=== PATIENT | male | born 1970 | race Caucasian/White ===

== ENCOUNTER → 2022-06-04 08:59 | Outpatient (BNVA) | payer OTHER, SELFPAY | PROVIDERS: Referring Provider Nurse Practitioner; Visit Provider Nurse Practitioner | DX: G43.909 Migraine, unspecified, not intractable, without status migrainosus (principal); R53.83 Other fatigue | CPT/HCPCS: 84443; 99203 ==

== ENCOUNTER → 2022-07-22 12:04 | Outpatient (BNVA) | payer OTHER, SELFPAY | PROVIDERS: PCP Emergency Medicine Emergency Medical Services; Visit Provider Specialist | DX: G43.711 Chronic migraine without aura, intractable, with status migrainosus (principal); Q21.12 Patent foramen ovale | CPT/HCPCS: 64615; 95911; 99213; J0585 ==

== ENCOUNTER → 2022-10-12 15:38 | Outpatient (BNVA) | payer OTHER, SELFPAY | PROVIDERS: PCP Emergency Medicine Emergency Medical Services; Referring Provider Emergency Medicine Emergency Medical Services; Visit Provider Specialist | DX: G56.03 Carpal tunnel syndrome, bilateral upper limbs (principal) | CPT/HCPCS: 95910; 95912 ==

== ENCOUNTER → 2022-10-14 12:04 | Outpatient (BNVA) | payer OTHER, SELFPAY | PROVIDERS: PCP Emergency Medicine Emergency Medical Services; Visit Provider Specialist | DX: G43.711 Chronic migraine without aura, intractable, with status migrainosus (principal); G56.03 Carpal tunnel syndrome, bilateral upper limbs; Q21.12 Patent foramen ovale | CPT/HCPCS: 64615; 99214; J0585 ==

== ENCOUNTER 2022-11-04 05:47 | Outpatient (CLI) | payer OTHER, SELFPAY | END 2022-11-04 05:48 | disposition home or self-care (01) | LOC: SLEEP 11-05 05:48 | PROVIDERS: PCP Emergency Medicine Emergency Medical Services; Visit Provider Anesthesiology Pain Medicine | DX: G47.33 Obstructive sleep apnea (adult) (pediatric) (principal) | CPT/HCPCS: 95810 ==

== ENCOUNTER 2023-03-18 10:04 | Outpatient (CLI) | payer OTHER, SELFPAY ==
--- NOTE | 2023-03-18 10:18 | ECG_ITS ---
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 Interpretive Statements NAME OF STUDY: LEXISCAN SESTAMIBI STRESS TEST INDICATION: Abnormal ekg, PROCEDURE: At the baseline, the EKG revealed normal sinus rhythm with a normal ST Ts.. The baseline heart was 66 bpm with a blood pressue of 141/94 mm of Hg Lexiscan was infused over a period of 20 seconds. A total of 0.4 milligrams of Lexiscan was infused. The stress phase was continued for a total of 5 minutes. Heart rate at the end of the stress phase was 90 bpm with a blood pressure 126/80 mm of Hg. The EKG at the peak infusion revealed no significant changes. Sestamibi was injected 20 seconds after the Lexiscan infusion. Heart rate at the end of the recovery phase was 90 bpm with a blood pressure of 128/82 mm of Hg. CONCLUSION: 1. No significant EKG changes with the LexiScan infusion 2. No LexiScan induced chest pain or cardiac arrhythmia 3. Normal blood pressure and heart rate response 4. Sestamibi/sestamibi perfusion scan pending; see separate report. Electronically Signed On 03-27-2023 18:17:47 CDT by Greg Fitzgerald M.D. [email or web address]
--- NOTE | 2023-03-18 10:18 | NMCV_ITS ---
NM carol ann perf SPECT r/s* [id number] Marcos Moran Age: 52 Gender: M : 1970 Exam Date: 03/18/2023 10:18 Ordering Phys: Michael Shaver DO Technologist: SHIRA Han Exam Location: [facility] Indications: ABNORMAL EKG STRESS TEST Please see separate stress test report in [facility] for full findings IMAGE PROTOCOL Rest/Stress 1 Lexiscan Day Radiopharmaceutical Dose (mCi) Administration Site Administered by Rest: Tc-99m 10.5 IV Carlos Sutton, BED BUG EXTERMINATOR Sestamibi Stress:Tc-99m 32.5 IV Carlos Sutton, BED BUG EXTERMINATOR Sestamibi Rest: 18-Mar-2023 60 Discovery 630 Stress: 18-Mar-2023 30 Discovery 630 0.4mg Lexiscan. Images obtained in supine and prone position. SPECT RESULTS Technical Quality: Excellent Raw Data Analysis: Normal Image Corrections: No attenuation or motion correction applied Summed Stress Score: 0 Summed Rest Score: 0 Summed Difference Score: 0 PERFUSION FINDINGS Fairly uniform myocardial tracer uptake with no significant perfusion abnormality FUNCTIONAL RESULTS (calculated via Gated SPECT) Stress Image LV EF (%): 74 Stress EDV (mL):102 TID: 0.99 Stress ESV (mL):27 FUNCTIONAL FINDINGS: Segmental wall motion analysis revealing no gross wall motion abnormalities IMPRESSIONS 1. Myocardial perfusion imaging revealing fairly uniform myocardial tracer uptake with no significant perfusion abnormalities. 2. Normal LV ejection fraction of 74%. 3. LV wall motion analysis revealing no gross wall motion abnormalities. 4. Normal LV volume No similar previous studies are available for comparison Dr Greg Fitzgerald MD [facility] (Electronically Signed) Final Date: 18 March 2023 15:02 S
[2023-03-18 10:19] VITALS: BMI 27.6
[2023-03-18] MEDS: regadenoson 0.4 Mg/5 ml Syringe IVP (11:38)
[2023-03-18 11:53] VITALS: BP 128/82; PULSE 93
== END 2023-03-18 10:05 | disposition home or self-care (01) ==
LOC: CDL 10:07
PROVIDERS: PCP Emergency Medicine Emergency Medical Services; Visit Provider Emergency Medicine Emergency Medical Services
DX: R94.31 Abnormal electrocardiogram [ECG] [EKG] (principal)
CPT/HCPCS: 36415; 78452; 93017; 96375; A9500; J2785

== ENCOUNTER → 2023-04-05 15:07 | Outpatient (BNVA) | payer OTHER, SELFPAY | PROVIDERS: PCP Emergency Medicine Emergency Medical Services; Referring Provider Emergency Medicine Emergency Medical Services; Visit Provider Internal Medicine Pulmonary Disease | DX: R91.8 Other nonspecific abnormal finding of lung field (principal); R68.89 Other general symptoms and signs; Q21.12 Patent foramen ovale; R06.02 Shortness of breath; G47.33 Obstructive sleep apnea (adult) (pediatric) | CPT/HCPCS: 99204 ==

== ENCOUNTER → 2023-04-11 09:11 | Outpatient (BNVA) | payer OTHER, SELFPAY | PROVIDERS: PCP Emergency Medicine Emergency Medical Services; Visit Provider Internal Medicine Pulmonary Disease | DX: R68.89 Other general symptoms and signs (principal) | CPT/HCPCS: 80053; 85025; 85049; 85384; 85610; 85730 ==

== ENCOUNTER 2023-04-12 08:40 | Day surgery (SDC) | payer OTHER, SELFPAY ==
[2023-04-08 10:20] VITALS: BMI 28.3
[2023-04-12] VITALS (12 sets, daily range): BP systolic 94–119; BP diastolic 54–90; PULSE 67–96; RESP 16–21; TEMP 35.9–36.4; O2SAT 92–96
--- NOTE | 2023-04-12 | XR_ITS ---
WS: [id number] Exam: XR chest 1V portable [id number] Date/Time of Exam: 04/12/2023 2:17 PM Reason For Exam: post bronchoscopy biopsy r/o ptx No priors. The lungs are fully expanded. Areas of plaque atelectasis in the lower RIGHT lung zone and mid LEFT l ana zone. Heart size is normal. The mediastinum is normal in contour. No pleural effusions. Bony stru ctures are intact. Previously noted bilateral lower lobe chest lesions seen on CT of 04/12/2023 diffic ult to identify on the AP portable chest x-ray. IMPRESSION: 1. No pneumothorax. 2. Bilateral plaque atelectasis. 3. Known bilateral lower lobe masses difficult to identify on this study.
--- NOTE | 2023-04-12 08:47 | CT_ITS ---
WS: [id number] CT chest ION (PULM ONLY) 41909 HISTORY: for bronchoscopy biopsies TECHNIQUE: Axial imaging performed through the thorax. All CT scans at [facility] use at leas t one of these dose optimization techniques: automated exposure control; mA and/or kV adjustment per patient size (includes targeted exams where dose is matched to clinical indication); or iterative rec onstruction. CONTRAST: None DLP: 357.86 mGy COMPARISON: Chest CT 03/22/2023 and PET/CT 03/29/2023 Large solid mass medial RIGHT lower lobe abutting the hilum and RIGHT atrial border. Mass extends william ng the bronchovascular bundle. Additional bilateral lymphadenopathy in the mediastinum and hilum. The re is an additional nodule with central necrosis in the central LEFT upper lobe measuring 2.3 x 2.0 c m with adjacent postobstructive pneumonia or atelectasis. Mild groundglass attenuation periphery RIGH T lower lobe. IMPRESSION: 1. RIGHT lower lobe PET/CT positive mass. 2. LEFT upper lobe PET/CT positive nodule. 3. Mediastinal and hilar adenopathy.
--- NOTE | 2023-04-12 09:14 | W.PM.OPSUD ---
Surgery/Procedure H&P Update DATE OF PROCEDURE: April 12, 2023 DATE H&P PERFORMED: 04/05/23 H&P UPDATE INFORMATION: I have reviewed H&P completed within last 30 days, I have examined patient prior to procedure and No changes to prior documentation PREOP DIAGNOSIS: suspected lung malignancy PRIMARY INDICATION FOR PROCEDURE: Rule out malignancy PLANNED PROCEDURE: Operation Date: 04/12/23 09:55 Proposed Procedures p ION, EBUS, 76436, 43798, 65702, 64055, 79030, 37576, 80280, 60220, 30750, 04565, 63674, 91996, 75824, 98927,R91.8(Not Applicable) - Michael Sanders MD s Ebus(Not Applicable) - Michael Sanders MD
[2023-04-12] MEDS: sodium chloride 0.9% 1,000 ML 30 ML IV (09:23)
--- NOTE | 2023-04-12 09:23 | ANES.PREANE2 ---
Pre-Anesthetic Assessment Height/Weight: Height 1.55 m Weight 68.039 kg Temp Pulse Resp BP Pulse Ox O2 Del Method 97 F L 80 20 H 119/90 95 Room Air 04/12/23 08:47 04/12/23 08:47 04/12/23 08:47 04/12/23 08:47 04/12/23 08:47 04/12/23 08:47 Preop Diagnosis: suspected lung malignancy Operation Date: 04/12/23 09:55 Proposed Procedures p ION, EBUS, 43425, 18235, 52386, 19516, 29160, 06735, 04819, 27966, 31694, 44600, 18273, 35956, 62588, 14491,R91.8(Not Applicable) - Michael Sanders MD s Ebus(Not Applicable) - Michael Sanders MD Familial anesthetic complications: None Was Beta Jostin taken within 24 hours: N/A Was Clonidine taken within 24 hours: N/A Last intake: > 8hrs Social No alcohol and No tobacco Exam alert, oriented x 3, clear to auscultation bilaterally and regular rate & rhythm Airway Mallampati: Class I Dentition: full Pulmonary Sleep Apnea CV/HEM PFO - no symptoms or limitation, served in [employer] GI Gastroesophageal Reflux Disease Neuropsych Cerebrovascular Accident Anesthetic Plan ASA status: 3 Anesthesia: General Risk of > 500 ml blood loss (7ml/kg in children): No Medications/Allergies Home Medications Medication Instructions Recorded Confirmed Last Taken Type acetaminophen 500 mg capsule 500 mg PO Q6H PRN Pain 06/04/22 04/08/23 Unknown History albuterol sulfate 90 mcg/actuation 2 puff inhalation Q6H PRN 06/04/22 04/08/23 04/11/23 20:00 History aerosol inhaler Shortness Of Breath allopurinol 300 mg tablet 300 mg PO DAILY 06/04/22 04/08/23 04/12/23 07:00 History aspirin 81 mg tablet,delayed 81 mg PO DAILY 06/04/22 04/08/23 04/08/23 History release cholecalciferol (vitamin D3) 50 50 mcg PO DAILY 06/04/22 04/08/23 04/09/23 History mcg (2,000 unit) capsule fluticasone propionate 50 2 spray intranasal DAILY PRN 06/04/22 04/08/23 04/08/23 History mcg/actuation nasal allergies spray,suspension guaifenesin 400 mg tablet 400 mg PO QID 06/04/22 04/08/23 04/12/23 07:00 History multivitamin 1 tab PO DAILY 06/04/22 04/08/23 04/09/23 History naloxone 4 mg/actuation nasal spray 4 mg intranasal Q3M PRN emergency 06/04/22 04/08/23 Unknown History use olopatadine 0.1 % eye drops 1 drp ophthalmic (eye) BID 06/04/22 04/08/23 04/08/23 History pantoprazole 20 mg tablet,delayed 20 mg PO DAILY 06/04/22 04/08/23 04/12/23 07:00 History release topiramate 200 mg tablet 200 mg PO DAILY 06/04/22 04/08/23 04/12/23 07:00 History verapamil 240 mg 24 hr 240 mg PO DAILY 06/04/22 04/08/23 04/12/23 07:00 History capsule,extended release cetirizine 10 mg tablet 10 mg PO DAILY PRN allergies 04/05/23 04/08/23 04/12/23 07:00 History cyclobenzaprine 10 mg tablet 10 mg PO TID PRN muscle spasms 04/05/23 04/08/23 04/08/23 History montelukast 10 mg tablet 10 mg PO DAILY 04/05/23 04/08/23 04/12/23 07:00 History oxycodone 5 mg tablet 5 mg PO Q4H PRN Pain 04/05/23 04/08/23 04/12/23 07:00 History benzonatate 100 mg capsule 200 mg PO TID PRN Cough 04/08/23 04/08/23 04/12/23 07:00 History ibuprofen 800 mg tablet 800 mg PO TID PRN Pain 04/08/23 04/08/23 04/09/23 History Allergies Allergy/AdvReac Type Severity Reaction Status Date / Time acetaminophen [From Vicodin] Allergy Unknown Verified 04/08/23 10:04 chlorthalidone Allergy Unknown Verified 04/08/23 10:04 codeine Allergy Unknown Verified 04/08/23 10:04 diphenhydramine Allergy Unknown Verified 04/08/23 10:04 [From Benadryl] hydrocodone [From Vicodin] Allergy Unknown Verified 04/08/23 10:04 mometasone furoate Allergy Unknown Verified 04/08/23 10:04 [facility] Anesthesia Social History Smoking and tobacco status: never smoked (Chews Tobacco) Alcohol intake: never Substance/Drug Use: never Data Anesthesia Cardiac Studies: Sestamibi Stress Test (Cardiology) 03/18/23
--- NOTE | 2023-04-12 09:37 | SC_ITS ---
WS: [id number] C-ARM RADIOGRAPHS CHEST; 5 IMAGES HISTORY: ion/ebus COMPARISON: 04/12/2023 Intra procedure imaging is provided for Dr. Sanders during EBUS procedure. Scope is noted targeting the nodule in the lingula. Additional biopsy was also probably performed of the mass in the RIGHT lower lobe. IMPRESSION: Intraprocedural imaging provided for Dr. Sanders during biopsy of the LEFT upper and RIGHT lower lobe p reviously described suspicious pulmonary lesions.
[2023-04-12] MEDS: lidocaine 1% INJ 10 mL (per mL) XX (10:34)
[2023-04-12 12:06] LABS: Apprearance, Bronch Wash Cloudy (CLEAR); Bronch Source Left Upper Lobe; Color, Bronc Wash Red; PATH Referral Yes
[2023-04-12 12:25] LABS: Apprearance, Bronch Wash Cloudy (CLEAR); Bronch Source Right Lower Lobe; Color, Bronc Wash Red; PATH Referral Yes
[2023-04-12] MEDS: EPINEPHrine 1 mg/mL INJ XX (12:34)
--- NOTE | 2023-04-12 13:07 | P.OP_ITS ---
Operative Report Date of procedure: April 12, 2023 Pre-op diagnosis: Preop Diagnosis suspected lung malignancy Procedure done: 71871 Dx Bronchoscope w/Washings or airway inspection 67043 Bx Bronchoscope w/Brushings or protected brushings 08940 Dx Bronchoscope w/BAL 57293 Bronch with computer image guided Navigational Bronchoscopy 95259 Bronchoscopy w/Transbronchial lung biopsy(s), single lobe 93637 Bronchoscopy w/Transbronchial needle aspiration biopsy(s), tracheal, main stem, and/or lobar bronchus 20321 Bronchoscopy w/ therapeutic aspiration of the tracheobronchial tree (clearance of airway secretions, removal of mucus plugs) 97882 EBUS Sampling 1/2 nodes 52516 EBUS Diag or Interven Peripheral lesion (radial EBUS) Additional lobe lesions: 66753 Bx Bronchoscope w/Brushings or protected brushings 37116 w/Transbronchial lung biopsy(s), each additional lobe (list separately, in addition to code for primary procedure) 57473 w/Transbronchial needle aspiration biopsy(s), each additional lobe (list separately, in addition to code for primary procedure) Surgeon: Michael Sanders MD, [facility] Brief History: Mr. Marcos Moran is a 52-year-old male with past medical history eval and treat lung nodules per Dr. Shaver. 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 Significant exposure to dust at work place. In [place], he went to ER for his cough; and had CXR was abnormal; Later his PCP at [facility] here ordered CT chest 03/22/23 and it showed lung nodules as per patient(I do not have the report but I reviewed images from [facility]) followed by PET/CT 03/29/23 which showed 5 cm paramediastinal consolidation extending inferiorly from the right hilum with SUV 14.65, 3 cm somewhat spiculated anterolateral left perihilar soft tissue mass with SUV 6.77.? There are multiple additional small nodules bilaterally.? There were several hilar/mediastinal lymph nodes.? Highest activity seen in subcarinal node.? There is also an FDG avid nodule relatable to right thyroid lobe with SUV 6.73.? All these concerning for metastatic disease. Tells me that he unintentionally lost 15-20 lbs in one year. Tells me that he has previously refused colonoscopy and recent hemoccult cards were negative. Patient never smoked, chews tobacco 30 years. 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 ? Today scheduled for robotic navigational bronchoscopy guided biopsies of left upper anterior lateral nodule; as well as right lower lobe paramediastinal consolidation; followed by endobronchial ultrasound-guided biopsies of hilar/mediastinal lymph nodes. Procedure: 06554 Dx Bronchoscope w/Washings or airway inspection 49173 Bx Bronchoscope w/Brushings or protected brushings 77406 Dx Bronchoscope w/BAL 46775 Bronch with computer image guided Navigational Bronchoscopy 15743 Bronchoscopy w/Transbronchial lung biopsy(s), single lobe 33264 Bronchoscopy w/Transbronchial needle aspiration biopsy(s), tracheal, main stem, and/or lobar bronchus 74044 Bronchoscopy w/ therapeutic aspiration of the tracheobronchial tree (clearance of airway secretions, removal of mucus plugs) 30238 EBUS Sampling 1/2 nodes 51930 EBUS Diag or Interven Peripheral lesion (radial EBUS) Additional lobe lesions: 29315 Bx Bronchoscope w/Brushings or protected brushings 74888 w/Transbronchial lung biopsy(s), each additional lobe (list separately, in addition to code for primary procedure) 53385 w/Transbronchial needle aspiration biopsy(s), each additional lobe (list separately, in addition to code for primary procedure) Indication: Description of the procedure: The procedure was explained to the patient and the consent was obtained. The patient was brought to the OR. Anesthesia: The patient underwent endotracheal intubation for general anesthesia. Local anesthesia: The distal trachea-Irma, right and left mainstem bronchi were anesthetized with 1% lidocaine, 3 mL. Following induction of general anesthesia, the flexible bronchoscope was advance d through the ET tube. The lower trachea mucosa appeared normal, no endotracheal lesion was seen. The irma was sharp. The irma, the right and left mainstem bronchi are anesthetized with 1% lidocaine. In a systematic manner bilateral bronchial tree was then examined. The bronchoscope was then introduced into the right mainstem bronchus. The right upper lobe, right middle lobe and right lower lobe bronchi were examined up to the third subsegmental level and no abnormalities were identified.Mucosa appeared normal with no endobronchial lesion, active bleeding or mucous plug.There were significant clear as well as some mucus secretions which were suctioned right away.(01188). The bronchoscope was advanced into the left mainstem bronchus. The mucosa appeared normal with no endobronchial lesions. The left upper lobe, lingula and left lower lobe bronchi were examined up to the third subsegmental level and no abnormalities were identified. Mucosa appeared normal with no endobronchial lesion, active bleeding or mucous plug. There were some mucus secretions in left lower lobe-which were suctioned right away.(21058) After initial inspection as well as airway clearance with flexible bronchoscope(96984), ION robotic assisted navigational bronchoscope (55925) was introduced-and left upper lobe lesion was accessed. After confirming the location with radial EBUS (00896), under the fluoroscopy guidance -we were able to obtain biopsies using fine-needle, brushing, forceps.There was some evidence of grade 2 bleeding-cold saline was instilled. BAL was also taken from left upper lobe anterior segment. After making sure there is no active bleeding, bronchoscope was navigated to the posterior segment of right lower lobe lesion using [employer] robotic navigational software lesion. After confirming the location with radial EBUS (85646), under the fluoroscopy guidance -we were able to obtain biopsies using fine-needle, forceps, Cytobrush.There was some evidence of grade 2 bleeding-cold saline was instilled. Bronchoalveolar lavage was also taken from right lower lobe post erior segment. After making sure there is no active bleeding navigational bronchoscope was retracted and introduced Endobronchial ultrasound EBUS (46779). With the help of EBUS, identified right lower lobe perihilar mass corresponding to station 12 R and station 7. Fine-needle aspiration biopsies were taken from lower lobe perihilar mass (station 12R) and station 7 (97241). After taking the biopsies EBUS retracted-diagnostic bronchoscope was introduced to check for any evidence of active bleeding. There was some evidence of bleeding-controlled with instillation of cold saline and diluted epinephrine. After making sure there is no active bleeding bronchoscope was retracted and procedure terminated. Samples: A. Left upper lobe lesion 1. Total of 3 passes were made using needle aspiration(41560); we do not have onsite pathology and so all the material was placed in formalin for histopathology 2. Targeting the same area 4 passes were made using forceps (12151); we do not have onsite pathology and so all the material was placed in formalin for histopathology 3. Targeting the same area 1 pass were made using Cytobrush (33320); we do not have onsite pathology and so all the material was placed in formalin for histopathology 4. Bronchoscope was wedged at the entrance of the anterior segment of left upper lobe, 10 mL of saline was instilled and returned 6 mL of bronchoalveolar lavage (29099). The fluid was mixed with blood and specks of tissue. Samples for cell count, cytology, cultures B. Right lower lobe lesion (Additional lobe lesions) 1. Total of 3 passes were made using needle aspiration (99988 additional lobe); we do not have onsite pathology and so all the material was placed in formalin for histopathology 2. Targeting the same area 3 passes were made using forceps (43644 additional lobe); we do not have onsite pathology and so all the material was placed in formalin for histopathology 3. Targeting the same area 1 pass were made using Cytobrush (18098 additional lobe); we do not have onsite pathology and so all the material was placed in formalin for histopathology 3. Bronchoscope was wedged at the entrance of the posterior segment of right lower lobe, 10 mL of saline was instilled and returned 5 mL of bronchoalveolar lavage (24639). The fluid was mixed with blood and specks of tissue.Samples for cell count, cytology, cultures C. EBUS guided Fine-needle aspiration biopsies were taken from right lower lobe perihilar mass corresponding to station 12 R and station 7. (74287) 1. Total of 3 passes were made using needle aspiration(41621) from right lower lobe perihilar mass corresponding to station 12 R; all the material was placed in formalin and sent for histopathology 2. Total of 3 passes were made using needle aspiration(96219) from station 7: all the material was placed in formalin and sent for histopathology Complications: None.The patient was extubated and brought to the PACU in stable condition. Postprocedure chest x-ray: There is no evidence of pneumothorax Disposition: Patient can be discharged home in stable condition. Pt, and family are aware that I am going to call them to update final biopsy results once available. Related Problem List Diagnoses (1) Suspected lung cancer:
--- NOTE | 2023-04-12 13:31 | XR_ITS ---
WS: [id number] Exam: XR chest 1V portable [id number] Date/Time of Exam: 04/12/2023 1:33 PM Reason For Exam: post bronchoscopy biopsy r/o ptx The lungs are clear and fully expanded. Normal cardiomediastinal silhouette. No pleural effusions. Re gional bony structures appear normal. Previously noted suspicious bilateral lower lobe pulmonary mass es identified on chest CT performed 04/12/2023 are difficult to identify on the AP portable chest radi ograph. IMPRESSION: 1. No pneumothorax or acute infiltrate. 2. Bilateral lung masses difficult to visualize on this exam.
--- NOTE | 2023-04-12 13:41 | ANE.PACU2 ---
Inpatient post-anesthesia follow up: Airway intact: Yes Vital signs: Temperature 96.7 F Pulse Rate 71 Respiratory Rate 17 Blood Pressure 117/70 Pulse Oximetry 93 Oxygen Delivery Me thod Room Air Oxygen Flow Rate 2 Fraction of Inspir ed Oxygen Hydration adequate: Yes Nausea and vomiting: No Pain level: 1 Mental status: Baseline
[2023-04-12 13:58] LABS: Total Cells Counted Bronch 25
[2023-04-12 14:00] LABS: WBC Within 10% 11
[2023-04-12 14:01] LABS: Total Cells Counted Bronch 100; WBC Within 10% 9
[2023-04-12 14:02] LABS: Cyto Order Verification Order Verified
[2023-04-12 14:02] LABS: Cyto Order Verification Order Verified
== END 2023-04-12 14:30 | disposition home or self-care (01) ==
PROVIDERS: PCP Emergency Medicine Emergency Medical Services; Visit Provider Internal Medicine Pulmonary Disease
PROC: 0BJ08ZZ Inspection of Tracheobronchial Tree, Via Natural or Artificial Opening Endoscopic (ICD-10-PCS; CPT 31622; principal; 2023-04-12 09:35)
PROC: BB4BZZZ Ultrasonography of Pleura (ICD-10-PCS; 2023-04-12 09:35)
DX: R91.8 Other nonspecific abnormal finding of lung field (principal); K21.9 Gastro-esophageal reflux disease without esophagitis; Z86.73 Personal history of transient ischemic attack (TIA), and cerebral infarction without residual deficits; F17.220 Nicotine dependence, chewing tobacco, uncomplicated; R68.89 Other general symptoms and signs; Q21.12 Patent foramen ovale; R06.02 Shortness of breath; G47.33 Obstructive sleep apnea (adult) (pediatric)
CPT/HCPCS: 31623; 31624; 31627; 31628; 31629; 31632; 31633; 31645; 31652; 31654; 71045; 71250; 76000; 80503; 87015; 87070; 87116; 87205; 87206; 87801; 88112; 88305; 88312; 89050; J0171; J1100; J2405; J2704; J3010; J3490; J7030; P9045

== ENCOUNTER 2023-04-18 11:01 | Outpatient (CLI) | payer OTHER, SELFPAY ==
[2023-04-21 11:10] LABS: Quantiferon Mitogen >10.00 IU/mL; Quantiferon Nil 0.03 IU/mL; Quantiferon Plus TB1 0.04 IU/mL; Quantiferon TB Gold NEGATIVE (NEGATIVE)
[2023-04-21 17:55] LABS: Aspergillus AG,EIA,Serum NOT DETECTED; Aspergillus Galactomannan Inde <0.50
[2023-04-22 01:09] LABS: Histoplasma Galactomannan Ag <0.2 ng/mL
[2023-04-22 16:55] LABS: Histoplasma Antigen (Quant) NONE DETECTED; Histoplasma Antigen Interpreta NEGATIVE; Histoplasma Antigen Specimen URINE
[2023-04-22 17:40] LABS: Aspergillus Source EDTA WHOLE BLOOD; Aspergillus Supp NOT DETECTED; Aspergillus Terreus DNA NOT DETECTED
[2023-04-22 20:53] LABS: Fungitell 1-3-B Glucan Assay <31 pg/mL; Interpretation NEGATIVE
[2023-04-23 15:20] LABS: Blastomyces AB Immunodiffusion Negative (Negative); Blastomyces Dermatitidis AB <1:8 titer (<1:8)
[2023-04-24 16:40] LABS: Coccidioides IgG Antibody POSITIVE; Coccidioides IgM Antibody POSITIVE
[2023-04-28 18:34] LABS: Coccidioides AB CF Serum 1:16
== END 2023-04-18 11:02 | disposition home or self-care (01) ==
PROVIDERS: PCP Emergency Medicine Emergency Medical Services; Visit Provider Internal Medicine Pulmonary Disease
DX: B49 Unspecified mycosis (principal); J16.8 Pneumonia due to other specified infectious organisms
CPT/HCPCS: 36415; 86480; 86606; 86612; 86635; 87305; 87385; 87449; 87798

== ENCOUNTER → 2023-04-20 08:00 | Outpatient (BNVA) | payer OTHER, SELFPAY | PROVIDERS: PCP Emergency Medicine Emergency Medical Services; Visit Provider Specialist | DX: G43.711 Chronic migraine without aura, intractable, with status migrainosus (principal) | CPT/HCPCS: 64615; J0585 ==

== ENCOUNTER 2023-04-21 07:00 | Outpatient (CLI) | payer OTHER, SELFPAY | END 2023-04-21 07:01 | disposition home or self-care (01) | PROVIDERS: PCP Emergency Medicine Emergency Medical Services; Visit Provider Internal Medicine Pulmonary Disease | DX: R91.8 Other nonspecific abnormal finding of lung field (principal); R06.00 Dyspnea, unspecified | CPT/HCPCS: 94010; 94618; 94726; 94729 ==

== ENCOUNTER → 2023-05-09 09:05 | Outpatient (BNVA) | payer OTHER, SELFPAY | PROVIDERS: PCP Emergency Medicine Emergency Medical Services; Visit Provider Internal Medicine Pulmonary Disease | DX: J16.8 Pneumonia due to other specified infectious organisms (principal); B49 Unspecified mycosis; B38.9 Coccidioidomycosis, unspecified; J98.4 Other disorders of lung; Q21.12 Patent foramen ovale; G47.33 Obstructive sleep apnea (adult) (pediatric); J98.11 Atelectasis; F17.220 Nicotine dependence, chewing tobacco, uncomplicated | CPT/HCPCS: 71046; 99214 ==

== ENCOUNTER → 2023-05-12 12:39 | Outpatient (BNVA) | payer OTHER, SELFPAY | PROVIDERS: PCP Emergency Medicine Emergency Medical Services; Visit Provider Internal Medicine Cardiovascular Disease | DX: B49 Unspecified mycosis (principal); J16.8 Pneumonia due to other specified infectious organisms; Z79.899 Other long term (current) drug therapy; B38.9 Coccidioidomycosis, unspecified | CPT/HCPCS: 93005; 99205 ==

== ENCOUNTER 2023-05-18 09:19 | Outpatient (CLI) | payer OTHER, SELFPAY ==
[2023-05-18 09:36] LABS: Basophils % 0.5 %; Eosinophils # 0.1 10^3/uL (0.0-0.8); Eosinophils % 3.3 %; Hematocrit 44.2 % (37-53); Lymphocytes % 23.3 %; Mean Corpuscular HGB Conc 33.7 g/dL (30-55); Mean Corpuscular Volume 94.8 fl (82-101); Mean Platelet Volume 8.8 fL (7.4-10.4); Monocytes # 0.5 10^3/uL (0.2-0.9); Monocytes % 11.4 %; Neutrophils # 2.63 10^3/uL (1.8-7.7); Nucleated Red Blood Cells % 0 %; Platelet Count 206 10^3/cmm (157-399); Red Blood Count 4.66 10^6/uL (3.85-5.65); Red Cell Distribution Width 13.3 % (12.1-15.1)
[2023-05-20 16:10] LABS: Alternaria Alternata (M6) Ige <0.10 kU/L; Alternaria Class 0; Bermuda Class 0; Bermuda Grass (G2) Ige <0.10 kU/L; Cat Dander (E1) Ige <0.10 kU/L; Cat Dander Class 0; Common Ragweed (Short) (W1) Ig <0.10 kU/L; D. Farinae Class 0; Dermatophagoides Class 0; Dermatophagoides Farinae (D2) <0.10 kU/L; Dermatophagoides Pteronyssinus <0.10 kU/L; Dog Dander (E5) Ige <0.10 kU/L; Dog Dander Class 0; Elm (T8) Ige <0.10 kU/L; Elm Class 0; English Plantain (W9) Ige <0.10 kU/L; English Plantain Class 0; House Dust (Greer) (H1) Ige <0.10 kU/L; House Dust (Hollister- Stier) <0.10 kU/L; House Dust Class 0; Immunoglobulin E 25 kU/L (<OR=114); Johnson Grass (G10) Ige <0.10 kU/L; Johnson Grass Cl 0; June Grass Class 0; June Grass(Kentucky Blue) (G8) <0.10 kU/L; Lamb'S Quarters (Goose Foot) <0.10 kU/L; Lamb'S Quarters Class 0; Maple (Box Elder) (T1) Ige <0.10 kU/L; Maple Class 0; Meadow Fescue (G4) Ige <0.10 kU/L; Meadow Fescue Class 0; Mucor Racemosus Class 0; Oak (T7) Ige <0.10 kU/L; Oak Class 0; Orchard Grass (Cocksfoot) (G3) <0.10 kU/L; Penicillium Class 0; Penicillium Notatum (M1) Ige <0.10 kU/L; Perennial Rye Grass (G5) Ige <0.10 kU/L; Perennial Rye Grass Class 0; Ragweeed Class 0; Rough Marsh Elder (W16) Ige <0.10 kU/L; Rough Marsh Elder Class 0; Sweet Vernal Class 0; Sweet Vernal Grass (G1) Ige <0.10 kU/L; Timothy Grass (G6) Ige <0.10 kU/L; Timothy Grass Class 0
== END 2023-05-18 09:20 | disposition home or self-care (01) ==
LOC: LAB 09:23
PROVIDERS: PCP Emergency Medicine Emergency Medical Services; Visit Provider Internal Medicine Pulmonary Disease
DX: R06.02 Shortness of breath (principal)
CPT/HCPCS: 36415; 82785; 85025; 86003

== ENCOUNTER 2023-06-13 10:50 | Outpatient (CLI) | payer OTHER, SELFPAY ==
--- NOTE | 2023-06-13 11:00 | CT_ITS ---
WS: [id number] CT chest wo con 18702 HISTORY: follow Up, as per history of fungal infection per patient. TECHNIQUE: Axial imaging performed through the thorax. Coronal and sagittal reformats are submitted. All CT scans at [facility] use at least one of these dose optimization techniques: automated exposure control; mA and/or kV adjustment per patient size (includes targeted exams where dose is mat ched to clinical indication); or iterative reconstruction. CONTRAST: None DLP: 324.41 mGy.cm COMPARISON: 04/12/2023 and 03/22/2023 Lungs and central airway: Previously described PET/CT positive cavitary mass in the LEFT upper lobe i s reidentified with significant improvement. Nodular component measures 1.1 x 1.0 cm. Cavitation has resolved. Minimal adjacent groundglass attenuation and a single satellite nodule. Significant improve ment in size and overall. Nodular inflammatory change. Previously described mass centered at the RIGH T hilum and extending into the azygos esophageal recess is reidentified. There is been a moderate imp rovement in size and surrounding inflammatory changes. The residual mass measures 4.8 x 2.1 cm. There is less adjacent para inflammatory stranding. Pleura: Normal. No pleural effusion. Heart and pericardium: Normal size heart with no pericardial effusion. Mediastinum and iwona: Mildly prominent mediastinal and hilar lymph nodes similar size to the PET/CT w ith the largest in the inferior LEFT paratracheal region measuring 1.4 cm. Vessels: Normal size aortic and pulmonary artery. No coronary artery calcifications. Chest wall and lower neck: No soft tissue masses. Upper abdomen: Negative. Osseous structures: Straightening of the normal thoracic kyphosis. Slight reversal at the thoracolumb ar junction. IMPRESSION: 1. Significant improvement of the RIGHT lower lobe and LEFT upper lobe PET/CT positive consolidations . 2. Residual LEFT upper lobe nodule 1.1 x 1.0 cm. 3. Residual medial RIGHT lower lobe mass 4.8 x 2.1 cm.
== END 2023-06-13 10:51 | disposition home or self-care (01) ==
LOC: RAD 10:50
PROVIDERS: PCP Emergency Medicine Emergency Medical Services; Visit Provider Internal Medicine Pulmonary Disease
DX: J16.8 Pneumonia due to other specified infectious organisms (principal); B49 Unspecified mycosis; R91.1 Solitary pulmonary nodule; R91.8 Other nonspecific abnormal finding of lung field
CPT/HCPCS: 71250

== ENCOUNTER → 2023-06-23 13:00 | Outpatient (BNVA) | payer OTHER, SELFPAY | PROVIDERS: PCP Emergency Medicine Emergency Medical Services; Visit Provider Student in an Organized Health Care Education/Training Program | DX: B38.9 Coccidioidomycosis, unspecified (principal) | CPT/HCPCS: 36415; 80053; 85025; 87806; 99214 ==

== ENCOUNTER → 2023-07-12 12:30 | Outpatient (BNVA) | payer OTHER, SELFPAY | PROVIDERS: PCP Emergency Medicine Emergency Medical Services; Visit Provider Internal Medicine Pulmonary Disease | DX: B38.9 Coccidioidomycosis, unspecified (principal); Q21.12 Patent foramen ovale; G47.33 Obstructive sleep apnea (adult) (pediatric); J16.8 Pneumonia due to other specified infectious organisms; B49 Unspecified mycosis | CPT/HCPCS: 99214 ==

== ENCOUNTER → 2023-07-21 07:55 | Outpatient (BNVA) | payer OTHER, SELFPAY | PROVIDERS: PCP Emergency Medicine Emergency Medical Services; Visit Provider Specialist | DX: G43.711 Chronic migraine without aura, intractable, with status migrainosus (principal) | CPT/HCPCS: 64615; 64643; J0585 ==

== ENCOUNTER → 2023-07-25 09:02 | Outpatient (BNVA) | payer OTHER, SELFPAY | PROVIDERS: PCP Emergency Medicine Emergency Medical Services; Referring Provider Emergency Medicine Emergency Medical Services; Visit Provider Surgery | DX: Z12.11 Encounter for screening for malignant neoplasm of colon (principal) | CPT/HCPCS: 99203 ==

== ENCOUNTER 2023-08-04 08:23 | Day surgery (SDC) | payer OTHER, SELFPAY ==
--- NOTE | 2023-08-04 08:36 | W.PM.OPSUD ---
Surgery/Procedure H&P Update DATE OF PROCEDURE: August 04, 2023 DATE H&P PERFORMED: 07/25/23 H&P UPDATE INFORMATION: I have reviewed H&P completed within last 30 days, I have examined patient prior to procedure, No changes to prior documentation and H&P is in [facility] EMR on date indicated PLANNED PROCEDURE: Operation Date: 08/04/23 09:35 Proposed Procedures p 50546 colon G0121 screen colon A risk Z12.11(Not Applicable) - Viet Cho MD
[2023-08-04 08:39] VITALS: BP 129/86; PULSE 80; RESP 18; TEMP 36.4; O2SAT 99; BMI 27.6
[2023-08-04] MEDS: sodium chloride 0.9% 1,000 ML 30 ML IV (08:55)
--- NOTE | 2023-08-04 08:55 | P.ANESASSM_ITS ---
Pre-Anesthetic Assessment Height/Weight: Height 1.55 m Weight 66.224 kg Temp Pulse Resp BP Pulse Ox O2 Del Method 97.5 F L 80 18 129/86 99 Room Air 08/04/23 08:39 08/04/23 08:39 08/04/23 08:39 08/04/23 08:39 08/04/23 08:39 08/04/23 08:39 Preop Diagnosis: screening Operation Date: 08/04/23 09:35 Proposed Procedures p 86133 colon G0121 screen colon A risk Z12.11(Not Applicable) - Viet Cho MD Last intake: Intake Last Liquid Date 08/03/23 Last Liquid Time 21:00 Last Solid Date 08/02/23 Last Solid Time 19:00 Social Alcohol and Tobacco Exam alert, oriented x 3, clear to auscultation bilaterally and regular rate & rhythm Airway Submandibular: within normal limits Cervical ROM: within normal limits Mallampati: Class I History/ROS No significant history except as noted and No significant complaints Pulmonary Asthma, Chronic Obstructive Pulmonary Disease and Sleep Apnea (does not use CPAP) [place] with lesions in lungs CV/HEM Hypertension pt states I have a large PFO None reported Hepatic None reported GI Gastroesophageal Reflux Disease Metabolic Hyperlipidemia [facility] [place] Osteoarthritis/DJD Neuropsych Cerebrovascular Accident (2019) Anesthetic Plan ASA status: 3 Anesthesia: Anesthesia Evaluation and MAC Medications/Allergies Home Medications Medication Instructions Recorded Confirmed Last Taken Type acetaminophen 500 mg capsule 500 mg PO Q6H PRN Pain 06/04/22 08/04/23 Unknown History albuterol sulfate 90 mcg/actuation 2 puff inhalation Q6H PRN 06/04/22 08/04/23 2 Weeks Ago History aerosol inhaler Shortness Of Breath ~07/21/23 allopurinol 300 mg tablet 300 mg PO DAILY 06/04/22 08/04/23 08/03/23 History aspirin 81 mg tablet,delayed 81 mg PO DAILY 06/04/22 08/04/23 08/03/23 History release cholecalciferol (vitamin D3) 50 50 mcg PO DAILY 06/04/22 08/04/23 08/03/23 History mcg (2,000 unit) capsule fluticasone propionate 50 2 spray intranasal DAILY PRN 06/04/22 08/04/23 2 Months Ago History mcg/actuation nasal allergies ~06/04/23 spray,suspension guaifenesin 400 mg tablet 400 mg PO QID 06/04/22 08/04/23 08/03/23 History multivitamin 1 tab PO DAILY 06/04/22 08/04/23 08/03/23 History naloxone 4 mg/actuation nasal spray 4 mg intranasal Q3M PRN emergency 06/04/22 08/04/23 08/03/23 History use olopatadine 0.1 % eye drops 1 drp ophthalmic (eye) BID 06/04/22 08/04/23 08/03/23 History pantoprazole 20 mg tablet,delayed 20 mg PO DAILY 06/04/22 08/04/23 08/03/23 History release topiramate 200 mg tablet 200 mg PO DAILY 06/04/22 08/04/23 08/03/23 History cetirizine 10 mg tablet 10 mg PO DAILY PRN allergies 04/05/23 08/04/23 08/03/23 History cyclobenzaprine 10 mg tablet 10 mg PO TID PRN muscle spasms 04/05/23 08/04/23 2 Months Ago History ~06/04/23 montelukast 10 mg tablet 10 mg PO DAILY 04/05/23 08/04/23 08/03/23 History oxycodone 5 mg tablet 5 mg PO Q4H PRN Pain 04/05/23 08/04/23 08/03/23 History ibuprofen 800 mg tablet 800 mg PO TID PRN Pain 04/08/23 08/04/23 08/03/23 History colchicine 0.6 mg tablet 0.6 mg PO BID PRN gout 05/09/23 08/04/23 1 Year Ago History ~08/04/22 fluticasone 250 mcg-salmeterol 50 1 inh inhalation BID #60 ea 05/30/23 08/04/23 08/03/23 Rx mcg/dose blistr powdr for inhalation ([facility] In[facility]) lisinopril 10 mg tablet 10 mg PO DAILY 07/25/23 08/04/23 08/03/23 History fluconazole 200 mg tablet 200 mg PO DAILY 6 months #180 tabs 07/29/23 08/04/23 08/03/23 Rx Allergies Allergy/AdvReac Type Severity Reaction Status Date / Time chlorthalidone Allergy Unknown Verified 08/04/23 08:50 codeine Allergy Unknown Verified 08/04/23 08:50 diphenhydramine Allergy Unknown Verified 08/04/23 08:50 [From Benadryl] hydrocodone [From Vicodin] Allergy Unknown Verified 08/04/23 08:50 [facility] Anesthesia Social History (Updated 07/25/23 @ 09:15 by MOIZ Eason) Smoking and tobacco/nicotine status: current every day tobacco/nicotine user smokeless tobacco Smokeless tobacco user: chewing tobacco Alcohol intake: current Alcohol intake frequency: holidays/special occasions only Substance/Drug Use: never Data Anesthesia Cardiac Studies: Sestamibi Stress Test (Cardiology) 03/18
[2023-08-04 10:12] VITALS: BP 118/70; PULSE 81; RESP 16; TEMP 36.1; O2SAT 96
[2023-08-04 10:28] VITALS: BP 112/76; PULSE 61; RESP 18; O2SAT 94
--- NOTE | 2023-08-04 14:32 | ANE.PACU2 ---
Inpatient post-anesthesia follow up: Airway intact: Yes Vital signs: Temperature 97.0 F Pulse Rate 61 Respiratory Rate 18 Blood Pressure 112/76 Pulse Oximetry 94 Oxygen Delivery Me thod Room Air Oxygen Flow Rate Fraction of Inspir ed Oxygen Hydration adequate: Yes Nausea and vomiting: No Pain level: 2 Mental status: Baseline
== END 2023-08-04 10:45 | disposition home or self-care (01) ==
PROVIDERS: PCP Emergency Medicine Emergency Medical Services; Visit Provider Surgery
PROC: 0DJD8ZZ Inspection of Lower Intestinal Tract, Via Natural or Artificial Opening Endoscopic (ICD-10-PCS; CPT 45378; principal; 2023-08-04 09:35)
DX: Z12.11 Encounter for screening for malignant neoplasm of colon (principal); J44.9 Chronic obstructive pulmonary disease, unspecified; G47.30 Sleep apnea, unspecified; I10 Essential (primary) hypertension; K21.9 Gastro-esophageal reflux disease without esophagitis; E78.5 Hyperlipidemia, unspecified; M19.90 Unspecified osteoarthritis, unspecified site; Z86.73 Personal history of transient ischemic attack (TIA), and cerebral infarction without residual deficits; Z79.82 Long term (current) use of aspirin; F17.220 Nicotine dependence, chewing tobacco, uncomplicated
CPT/HCPCS: 45378; J2704; J7030

== ENCOUNTER 2023-10-04 10:46 | Outpatient (CLI) | payer OTHER, SELFPAY ==
--- NOTE | 2023-10-04 10:53 | MR_ITS ---
WS: [id number] MRI LUMBAR SPINE NONCONTRAST HISTORY: LOW BACK PAIN COMPARISON: None available. TECHNIQUE: Sagittal and axial multisequence imaging is submitted. Straightening and reversal of the normal cervical lordosis. Encroachment on the central cervical jensen l at C4-5, C5-6 and C6-7. There are multiple small disc protrusions and osteophytes throughout the th oracic spine. Slight increase in the lumbar lordosis. Disc spaces are narrowed in the lower thoracic spine through the lumbar spine. No marrow edema or fra cture. Conus terminates normally at L1-2 disc level. Mild thoracic stenosis at T10-11 and T9-10 due to disc and osteophyte disease. L1-L2: Mild annular disc bulging with no stenosis. L2-L3: Mild annular disc bulging and osteophytic ridging. Facet and ligamentum flavum hypertrophy. No high-grade stenosis. L3-L4: Moderate annular disc bulging with moderate ligamentum flavum and facet arthritis. Mild disc e ncroachment upon the subarticular recesses and the traversing L4 nerve roots. Mild central, bilateral subarticular recess and foraminal stenosis. L4-L5: Moderate annular disc bulging encroaching upon the ventral thecal sac and subarticular recesse s. Moderate ligamentum flavum and facet arthritis. Mild central, bilateral subarticular recess and mi ld to moderate foraminal stenosis. L5-S1: Diffuse annular disc bulging with marked bilateral facet joint arthritis. Significant disc enc roachment upon the ventral thecal sac and the subarticular recesses. Disc contacts and slightly displ aces the S1 nerve roots. Moderate central, bilateral subarticular recess and foraminal stenosis. Paravertebral soft tissues are normal. IMPRESSION: 1. Multilevel mild to moderate stenosis throughout the lower lumbar spine. 2. No focal collection or epidural collection. 3. L5-S1: Moderate central, bilateral subarticular recess and foraminal stenosis due to disc and fac et joint arthritis. 4. L4-5: Mild central, bilateral subarticular recess with mild to moderate foraminal stenosis. 5. L3-4: Mild central, bilateral subarticular recess and foraminal stenosis. 6. Mild stenosis thoracic spine at T9-10 and T10-11.
== END 2023-10-04 10:47 | disposition home or self-care (01) ==
LOC: RAD 10:47
PROVIDERS: PCP Emergency Medicine Emergency Medical Services; Visit Provider Emergency Medicine Emergency Medical Services
DX: M48.07 Spinal stenosis, lumbosacral region (principal); M47.817 Spondylosis without myelopathy or radiculopathy, lumbosacral region; M48.04 Spinal stenosis, thoracic region; M51.9 Unspecified thoracic, thoracolumbar and lumbosacral intervertebral disc disorder
CPT/HCPCS: 72148

== ENCOUNTER 2023-10-12 11:59 | Outpatient (CLI) | payer OTHER, SELFPAY ==
--- NOTE | 2023-10-12 12:08 | MR_ITS ---
WS: [id number] MRI CERVICAL SPINE NONCONTRAST TECHNIQUE: Sagittal T1, T2 and STIR imaging. Axial T2, gradient, and fiesta imaging. CLINICAL INFORMATION: NECK PAIN/FLIP TO CITC COMPARISON: None. FINDINGS: Straightening with slight reversal of the normal cervical lordosis. Moderate spondylitic changes. Sli ght anterolisthesis C3 on C4. C2-C3: Mild facet arthropathy. Moderate LEFT and no significant RIGHT foraminal narrowing. Spinal can al is patent. C3-C4: Disc osteophyte complex with endplate ridging. Mild central canal stenosis. Uncovertebral join t hypertrophy. Severe LEFT and moderate RIGHT bony foraminal narrowing. Mild facet arthropathy. C4-C5: Disc osteophyte complex with endplate ridging. Mild central canal stenosis with slight indenta tion of the cervical cord. Mild facet arthropathy with uncovertebral joint hypertrophy. Severe LEFT a nd moderate RIGHT bony foraminal narrowing. C5-C6: Disc osteophyte complex with endplate ridging. Slight indentation of the cervical cord with mo derate central canal stenosis. Severe bilateral bony foraminal narrowing. C6-C7: Disc osteophyte complex with endplate ridging. Slight indentation of the cervical cord. Mild t o moderate central canal stenosis. Severe LEFT and moderate to severe RIGHT bony foraminal narrowing. C7-T1: Moderate to severe LEFT and moderate RIGHT bony foraminal narrowing. Visualized brain stem structures: Normal. Prevertebral soft tissues: Normal. IMPRESSION: 1. Straightening with slight reversal normal cervical lordosis. Moderate spondylitic changes. 2. Mild to moderate central canal stenosis C3-C4 C4-C5 C5-C6 and C6-C7 with slight indentation on th e cervical cord. 3. Cord signal remains normal. 4. Multilevel moderate to severe bony foraminal narrowing worse at LEFT C3-C4, bilateral C4-5 worse on the LEFT, bilateral C5-C6, LEFT greater than RIGHT C6-C7, and LEFT C7-T1.
== END 2023-10-12 12:00 | disposition home or self-care (01) ==
LOC: RAD 12:00
PROVIDERS: PCP Emergency Medicine Emergency Medical Services; Visit Provider Emergency Medicine Emergency Medical Services
DX: M54.2 Cervicalgia (principal)
CPT/HCPCS: 72141

== ENCOUNTER → 2023-10-20 07:42 | Outpatient (BNVA) | payer OTHER, SELFPAY | PROVIDERS: PCP Emergency Medicine Emergency Medical Services; Visit Provider Specialist | DX: G43.711 Chronic migraine without aura, intractable, with status migrainosus (principal) | CPT/HCPCS: 64615; J0585 ==

== ENCOUNTER → 2023-11-11 08:42 | Outpatient (BNVA) | payer OTHER, SELFPAY | PROVIDERS: PCP Emergency Medicine Emergency Medical Services; Visit Provider Internal Medicine Pulmonary Disease | DX: B38.9 Coccidioidomycosis, unspecified (principal); Q21.12 Patent foramen ovale; R06.02 Shortness of breath; G47.33 Obstructive sleep apnea (adult) (pediatric); J16.8 Pneumonia due to other specified infectious organisms; B49 Unspecified mycosis; F17.220 Nicotine dependence, chewing tobacco, uncomplicated | CPT/HCPCS: 99214 ==

== ENCOUNTER 2023-11-30 06:32 | Outpatient (CLI) | payer OTHER, SELFPAY ==
--- NOTE | 2023-11-30 07:00 | CT_ITS ---
WS: [id number] CT chest wo con [id number] HISTORY: 6 month f/u TECHNIQUE: Axial imaging performed through the thorax. Coronal and sagittal reformats are submitted. All CT scans at [facility] use at least one of these dose optimization techniques: automated exposure control; mA and/or kV adjustment per patient size (includes targeted exams where dose is mat ched to clinical indication); or iterative reconstruction. CONTRAST: None DLP: 326.53 mGy.cm COMPARISON: 06/13/2023 Lungs and central airway: LEFT upper lobe mass continues to decrease in size. There is less solid com ponent with the cavitary portion centrally increased in size. Nodule now measures 1.3 x 1.1 cm. There is a small amount of continued adjacent groundglass attenuation and a few nodules. Larger mass in th e medial RIGHT lower lobe now measures 4.5 x 2.4 cm. Only slight decrease in size of this mass since the prior study. There is continued adjacent mild groundglass attenuation. This mass is only slightly decreased in size. No new mass or cavitary lesion. Pleura: Normal. No pleural effusion. Heart and pericardium: Normal size heart with no pericardial effusion. Mediastinum and iwona: Mediastinal and hilar lymph nodes continue to decrease in size. The largest lym ph node along the LEFT paratracheal region is decreased in size and is now normal with recurrent norm al fatty hilum. Vessels: Mild atherosclerosis aorta. No aneurysm. Normal size pulmonary artery. Chest wall and lower neck: No soft tissue masses. Upper abdomen: Normal. Osseous structures: Straightening of the normal thoracic kyphosis. Slight reversal near the thoracolu mbar junction. IMPRESSION: 1. Slow but continued improvement in the LEFT upper lobe and RIGHT lower lobe consolidations. 2. No new pulmonary mass or nodule or cavitary lesion. 3. Continued improvement in the mediastinal and hilar lymph nodes. No adenopathy.
== END 2023-11-30 06:33 | disposition home or self-care (01) ==
LOC: RAD 06:32
PROVIDERS: PCP Emergency Medicine Emergency Medical Services; Visit Provider Internal Medicine Pulmonary Disease
DX: R91.8 Other nonspecific abnormal finding of lung field (principal)
CPT/HCPCS: 71250

== ENCOUNTER → 2024-01-17 13:00 | Outpatient (BNVA) | payer OTHER, SELFPAY | PROVIDERS: PCP Emergency Medicine Emergency Medical Services; Visit Provider Student in an Organized Health Care Education/Training Program | DX: B38.9 Coccidioidomycosis, unspecified (principal); Z79.899 Other long term (current) drug therapy | CPT/HCPCS: 99204 ==

== ENCOUNTER 2024-01-18 14:39 | Outpatient (CLI) | payer OTHER, SELFPAY | END 2024-01-18 14:40 | disposition home or self-care (01) | LOC: LAB 14:40 | PROVIDERS: PCP Emergency Medicine Emergency Medical Services; Visit Provider Student in an Organized Health Care Education/Training Program | DX: B38.9 Coccidioidomycosis, unspecified (principal) | CPT/HCPCS: 86635 ==

== ENCOUNTER → 2024-01-26 07:52 | Outpatient (BNVA) | payer OTHER, SELFPAY | PROVIDERS: PCP Emergency Medicine Emergency Medical Services; Visit Provider Specialist | DX: G43.711 Chronic migraine without aura, intractable, with status migrainosus (principal); G56.03 Carpal tunnel syndrome, bilateral upper limbs | CPT/HCPCS: 64615; J0585 ==

== ENCOUNTER → 2024-03-20 09:19 | Outpatient (BNVA) | payer OTHER, SELFPAY | PROVIDERS: PCP Emergency Medicine Emergency Medical Services; Referring Provider Emergency Medicine Emergency Medical Services; Visit Provider Internal Medicine | DX: R63.1 Polydipsia (principal); R35.89 Other polyuria; R63.4 Abnormal weight loss; Z68.29 Body mass index [BMI] 29.0-29.9, adult | CPT/HCPCS: 99204 ==

== ENCOUNTER → 2024-03-28 15:15 | Outpatient (BNVA) | payer OTHER, SELFPAY | PROVIDERS: PCP Emergency Medicine Emergency Medical Services; Visit Provider Internal Medicine | DX: R63.1 Polydipsia (principal); R35.89 Other polyuria | CPT/HCPCS: 82436; 83935; 84133; 84300 ==

== ENCOUNTER 2024-04-02 10:54 | Outpatient (CLI) | payer OTHER, SELFPAY ==
[2024-04-02 12:10] LABS: Sodium, Urine Result 87 mmol/L; Urine Creatinine 50 mg/dL (39-259); Urine Potassium 24 Hour 41 mmol/24H (25-125)
[2024-04-02 12:13] LABS: Potassium, Urine Result 144 mmol/L; Total Volume 3500 mL; Total Volume Urine 3500 ml; Total Volume, Urine 3500 mL
== END 2024-04-02 10:55 | disposition home or self-care (01) ==
PROVIDERS: PCP Emergency Medicine Emergency Medical Services; Visit Provider Internal Medicine
DX: R63.1 Polydipsia (principal); R35.89 Other polyuria
CPT/HCPCS: 82570; 84133; 84300; 84540

== ENCOUNTER → 2024-04-26 07:54 | Outpatient (BNVA) | payer OTHER, SELFPAY | PROVIDERS: PCP Emergency Medicine Emergency Medical Services; Visit Provider Specialist | DX: G43.711 Chronic migraine without aura, intractable, with status migrainosus (principal) | CPT/HCPCS: 36415; 64615; 82533; 84443; J0585 ==

== ENCOUNTER 2024-05-08 12:48 | Oncology outpatient (recurring) (ONCR) | payer OTHER, SELFPAY ==
--- OUTSIDE RECORDS SUMMARY | 2024-05-07 09:46 | XMS_ITS ---
Author Name Unknown Organization [facility] Address [address] [place] [address] Care Team Providers Care Technician [employer] Name Role Phone [facility] Michael BROWNING Primary Care Provider Un available Abner Huffman Unavailable [phone] Allergies Allergen (clinical drug ingredient) Drug/Non Drug Allergy documented on EMR Reaction Allergy Type Onset Date Status diphenhydramine Benadryl Unknown Drug Allergy A ctive codeine Codeine Unknown Drug Allergy Active REASON FOR VISIT RIGHT HIP Medications Medication SIG (Take, Route, Frequency, Duration) Notes Start Date End Date Status Montelukast Sodium 10 MG 1 tablet Orally Once a day Active Cyclobenzaprine HCl 10 MG 1 tablet at be dtime as needed Orally Once a day Not-Taking Clindamycin HCl 300 MG 1 capsule Orally every 6 hrs Active Lisinopril 10 MG 1 tablet Orally Once a day Active guaiFENesin 400 MG 1 tablet as needed Orally every 4 hrs Active Aspirin 81 Active Allopurinol 300 MG 1 tablet Orally Once a day Active Cetirizine HCl 10 MG 1 tablet Orally Onc e a day Active Topiramate 200 MG 1 tablet Orally Once a day Not-Taking Diclofenac Unknown Fluconazole 200 MG 1 tablet Orally 1 at hs Not-Taking Albuterol Not-Taking Wixela Inhub Active Pantoprazole Sodium 20 MG 1 tablet Orall y Once a day Active Ibuprofen 800 MG 1 tablet with food o r milk as needed Orally every 8 hrs Not-Taking Multivitamin Active oxyCODONE-Acetaminophen 5-325 MG 1 tablet as needed Orally every 6 hrs Active Social History Tobacco Use: Social History Observation Description Date Details (start date - stop date) Former Smoker NA - NA Tobacco Control (Standard) Question Answer Notes Tobacco use: Former smoker How long has it been since you last smoked? Grea ter than 10 years Vital Signs Blood pressure systolic 148 mm Hg 04/23/20 24 Blood pressure diastolic 80 mm Hg 024 Heart Rate 75 /min 04/23/2024 Respiratory Rate 18 /min 04/23/2024 Height 66 in 04/23/2024 Weight 154.32 lbs 04/23/2024 BMI 24.91 kg/m2 04/23/2024 Oximetry 98 % 04/23/2024 Height-cm 167.64 cm 04/23/2024 Weight-kg 70 kg 04/23/2024 Encounters Encounter Location Date Provider Diagnosis [facility] [address] [place] [id number] 04/23/2024 Abner Huffman Postoperative state Z98.890 Assessments Encounter Date Diagnosis (ICD Code) Assessment Notes Treat ment Notes Treatment Clinical Notes 04/23/2024 Postoperative state (ICD-10 - Z98.890) Plan Of Treatment Next Appt Details Provider Name:Abner Huffman , 05/28/2024 10:00:00 AM, [address] [place], [address], Provider Name:Chris Rodrigues, 09/18/2024 01:00:00 PM, [address] [place], [address], Progress Notes * Marcos MORAN WDOB:1969 (53 yo M)Acc No.[id number]:04/23/2024 Patient:?Marcos MORAN W Provider:?Abner Huffman MD :1970???Age:53 Y???Sex:Male Fabian e:04/23/2024 Address:[address] [place] [address] [id number] Pcp:Michael Marlow, DO Check In:09:50 AM CSTCheck Sasha ut:10:51 AM [employer] Subjective: * Chief Complaints: * ???RIGHT HIP * HPI: ???Provider Note:? Patient was seen after repair of his right gluteus medius tear. He reports he is working with therapy but still has pain. * Medical History:? * Surgical History:?Right Knee 1996Right Femur 1991Right Femur 1992Left Shoulder 2007Low Back RFA 23-24TEE 20Gluteus Medius Repair 01/2024 * Hospitalization/Major Diagno stic Procedure:?Stroke 2020 * Family History:? Grandma -Cancer. * Social History:?Tobacco Use:?Tobacco Control (Standard)?Tobacco use:?Former smoker ?How long has it been since you last smoked??Greater than 10 years * Medications:?TakingAllopurin ol 300 MG Tablet 1 tablet Orally Once a day Aspirin 81 Cetirizine HCl 10 MG Tablet 1 tablet Orally Once a day Clindamycin HCl 300 MG Capsule 1 capsule Orally every 6 hrs guaiFENesin 400 MG Tablet 1 tablet as needed Orally every 4 hrs Lisinopril 10 MG Tablet 1 tablet Orally Once a day Montelukast Sodium 10 MG Tablet 1 tablet Orally Once a day Multivitamin oxyCODONE-Acetaminophen 5-325 MG Tablet 1 tablet as needed Orally every 6 hrs Pantoprazole Sodium 20 MG Tablet Delayed Release 1 tablet Orally Once a day Wixela Inhub Taking Allopurinol 300 MG Tablet 1 tablet Orally Once a day Taking Aspirin 81 Taking Cetirizine HCl 10 MG Tablet 1 tablet Orally Once a day Taking Clindamycin HCl 300 MG Capsule 1 capsule Orally every 6 hrs Taking guaiFENesin 400 MG Tablet 1 tablet as needed Orally every 4 hrs Taking Lisinopril 10 MG Tablet 1 tablet Orally Once a day Taking Montelukast Sodium 10 MG Tablet 1 tablet Orally Once a day Taking Multivitamin Taking oxyCODONE- Acetaminophen 5-325 MG Tablet 1 tablet as needed Orally every 6 hrs Taking Pantoprazole Sodium 20 MG Tablet Delayed Release 1 tablet Orally Once a day Taking Wixela Inhub Not-TakingAlbuterol Cyclobenzaprine HCl 10 MG Tablet 1 tablet at bedtime as needed Orally Once a day Fluconazole 200 MG Tablet 1 tablet Orally 1 at hs Ibuprofen 800 MG Tablet 1 tablet with food or milk as needed Orally every 8 hrs Topiramate 200 MG Tablet 1 tablet Orally Once a day Not-Taking Albuterol Not-Taking Cyclobenzaprine HCl 10 MG Tablet 1 tablet at bedtime as needed Orally Once a day Not-Taking Fluconazole 200 MG Tablet 1 tablet Orally 1 at hs Not-Taking Ibuprofen 800 MG Tablet 1 tablet with food or milk as needed Orally every 8 hrs Not-Taking Topiramate 200 MG Tablet 1 tablet Orally Once a day UnknownDiclofenac Medication List reviewed and reconciled with the patientUnknown Diclofenac Medication List reviewed and reconciled with the patient * Allergies:?CodeineBenadrylno [Allergies Verified] Objective: * Vitals:?Ht: 66 in, Wt:154.32 lbs, Wt-k kg, BMI:24.91Index, BP:148/80mm Hg, HR:75/min, RR:18/min, Oxygen sat %:98%, O2 Source: ra, Ht-cm: 167.64 cm. * Examination: ???General Examination: ???Marcos still has tenderness over his left greater trochanter. In the lateral position he can abduct his leg away from his body. ??? Assessment: * Assessment: 1.?Postoperative state - Z98 .890 (Primary)??? Marcos will continue work with therapy. This should improve. I will see him back in 4 weeks. Plan: * Treatment: * Procedure Codes:? * Billing Information: * Visit Code:? * Procedure Codes:? * Sign off status: Completed true * Provider:?Abner Huffman MD Date:?04/23 Generated for Tiara ferris/Leah/Eberitting on:?05/07/2024 09:45 AM CDT
--- OUTSIDE RECORDS SUMMARY | 2024-05-07 09:46 | XMS_ITS ---
Author Name Unknown Organization [facility] Address [address] [place] [place] [address] Care Team Providers Care Quality System Manager Name Role Phone [facility] Michael BROWNING Primary Care Provider Un available Abner Huffman Unavailable [phone] Chris Rodrigues Unavailable [phone] Allergies Allergen (clinical drug ingredient) Drug/Non Drug Allergy documented on EMR Reaction Allergy Type Onset Date Status diphenhydramine Benadryl Unknown Drug Allergy A ctive codeine Codeine Unknown Drug Allergy Active REASON FOR VISIT F/U back pain Medications Medication SIG (Take, Route, Frequency, Duration) Notes Start Date End Date Status Clindamycin HCl 300 MG 1 capsule Orally every 6 hrs Active Cyclobenzaprine HCl 10 MG 1 tablet at be dtime as needed Orally Once a day Active guaiFENesin 400 MG 1 tablet as needed Orally every 4 hrs Active Lisinopril 10 MG 1 tablet Orally Once a day Active Montelukast Sodium 10 MG 1 tablet Orally Once a day Active Topiramate 200 MG 1 tablet Orally Once a day Not-Taking Diclofenac Unknown Allopurinol 300 MG 1 tablet Orally Once a day Active Aspirin 81 Active Cetirizine HCl 10 MG 1 tablet Orally Onc e a day Active Ibuprofen 800 MG 1 tablet with food o r milk as needed Orally every 8 hrs Not-Taking Pantoprazole Sodium 20 MG 1 tablet Orall y Once a day Active Wixela Inhub Active Albuterol Not-Taking Fluconazole 200 MG 1 tablet Orally 1 at hs Not-Taking Multivitamin Active oxyCODONE-Acetaminophen 5-325 MG 1 tablet as needed Orally every 6 hrs Active Social History Tobacco Use: Social History Observation Description Date Details (start date - stop date) Former Smoker NA - NA Tobacco Control (Standard) Question Answer Notes Tobacco use: Former smoker How long has it been since you last smoked? Grea ter than 10 years Vital Signs Temperature 98.0 degrees Fahrenheit 03/27/20 24 Blood pressure systolic 128 mm Hg 03/27/20 24 Blood pressure diastolic 76 mm Hg 024 Heart Rate 92 /min 03/27/2024 Respiratory Rate 20 /min 03/27/2024 Height 66 in 03/27/2024 Weight 150 lbs 03/27/2024 BMI 24.21 kg/m2 03/27/2024 Oximetry 91 % 03/27/2024 Height-cm 167.64 cm 03/27/2024 Weight-kg 68.04 kg 03/27/2024 Encounters Encounter Location Date Provider Diagnosis Counts Include [facility] At [facility] [place] [address] [place] [phone] 03/27/2024 Chris Rodrigues Cervicalgia M54.2 ; Cervical radiculopathy M54.12 ; Spondylolisthesis at L5-S1 level M43.17 ; Lumbar radiculopathy M54.16 and Scoliosis M41.9 Assessments Encounter Date Diagnosis (ICD Code) Assessment Notes Treat ment Notes Treatment Clinical Notes 03/27/2024 Cervicalgia (ICD-10 - M54.2) 03/27/2024 Cervical radiculopat hy (ICD-10 - M54.12) 03/27/2024 Spondylolisthesis at L5-S1 level (ICD-10 - M43.17) 03/27/2024 Lumbar radiculopathy (ICD-10 - M54.16) 03/27/2024 Scoliosis (ICD-10 - M41.9) 03/27/2024 Other The patient continues to have neck and back pain. He has recently had right hip surgery and says he is going to need shoulder surgery after he is recovered from the hip procedure. He is being referred to physial therapy post-operatively according to the patient. I recommended the patient address the Ortho issues before deciding on a surgery for the neck or back. I will see him back for a follow-up in 6 months. We will re-evaluate at that time. The patient is in agreement. DIA reviewed I Alyssa Ford LPN am scribing for, and in the presence of Chris Rodrigues MD. I, Chris Rodrigues, personally performed the services described in this documentation, as scribed by Alyssa Ford LPN in my presence, and it is both accurate and complete. Plan Of Treatment Treatment Notes Assessment Notes Other The patient continues to have neck and back pain. He has recently had right hip surgery and says he is going to need shoulder surgery after he is recovered from the hip procedure. He is being referred to physial therapy post-operatively according to the patient. I recommended the patient address the Ortho issues before deciding on a surgery for the neck or back. I will see him back for a follow-up in 6 months. We will re-evaluate at that time. The patient is in agreement. ROS reviewed I Alyssa Ford LPN am scribing for, and in the presence of Chris Rodrigues MD. I, Chris Rodrigues, personally performed the services described in this documentation, as scribed by Alyssa Ford LPN in my presence, and it is both accurate and complete. Next Appt Details Follow Up: Pt will call, Polly son: Provider Name:Abner Huffman , 05/28/2024 10:00:00 AM, [address] [facility] [place], [phone], Provider Name:Chris Rodrigues, 09/18/2024 01:00:00 PM, [address] [place], [address], Progress Notes * Marcos MORAN WDOB:1969 (53 yo M)Acc No.[id number]:03/27/2024 Progress Notes Patient:?Marcos MORAN W Provider:?Chris Rodrigues MD :1970???Age:53 Y???Sex:Male Fabian e:03/27/2024 Address:[address] [place] [address] [address] [id number] Pcp:Michael Marlow, DO Check Out:01:24 PM 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 F/U back pain. * HPI: ???Provider Note:?03/27/24 Pleasant patient returns for a follow-up on neck and back pain. He underwent a gluteus medius tear repair surgery on 02/[address] Huffman. The patient says he has been told he needs bilateral shoulder replacements after his recovery from the hip surgery. 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 Today, the patient says his back pain is worse than the neck. No changes in his symptoms from previous visits. 01/17/24 The patient returns today for a follow-up on back pain, and we now have a [facility] authorization to treat the neck pain as well. The patient was referred to Dr. Griggs on his previous visit for evaluation of right hip pain and swelling. The patient says he did see Dr. Griggs and is being scheduled for an MRI of the right hip. He has a follow-up with Dr. Griggs on February 23. The patient says there have been no changes in his symptoms since he was seen 4 weeks ago. The patient also complains of neck pain with radiation down both arms with numbness. He has an MRI of the cervical spine that shows severe stenosis at C3-4, C4-5, C5-6 and C6-7, there is reversal of cervical lordosis. The patient says he has an appointment scheduled with a Machine Preservative Filler on May 14 [address] Pineda at pain management to discuss a spinal cord stimulator. * ROS:?General/Constitutional:?Denies?Chills.?Denies?Fatigue/Tiredness.?Denies?Fever.?Denies?Headache.?Respiratory:?Denies?Breathing problems.?Denies?Cough.?Denies?Shortness of breath.?Denies?Wheezing.?Cardiovascular:?Denies?Chest pain.?Denies?Cyanosis.?Denies?Dizziness.?Denies?Palpitations.?Denies?Swelling in hands/feet.?Gastrointestinal:?Denies?Abdominal pain.?Denies?Change in bowel habits.?Denies?Nausea.?Genitourinary:?Urinary Incontinence?denies.?Musculoskeletal:?Comments?See HPI for details.?Neurologic:?Comments?See HPI for details.? * Medical History:?Measles, Mu mps, Chicken Pox, Pneumonia, Arthritis, Migraine, Back Trouble, HBP, Asthma, Stroke. * Surgical History:?Right Knee 1995, Right Femur 1990, Right Femur 1991, Left Shoulder 2006, Low Back RFA 23-24, EMMY 20, Gluteus Medius Repair 01/2024. * Hospitalization/Major Diagno stic Procedure:?Stroke 2019. * Family History:? Grandma -Cancer. * Social History:?Tobacco Use:?Tobacco Control (Standard)?Tobacco use:?Former smoker,?How long has it been since you last smoked??Greater than 10 years.? * Medications:?Taking Allopuri nol 300 MG Tablet 1 tablet Orally Once a day , Taking Aspirin 81 , Taking Cetirizine HCl 10 MG Tablet 1 tablet Orally Once a day , Taking Clindamycin HCl 300 MG Capsule 1 capsule Orally every 6 hrs , Taking Cyclobenzaprine HCl 10 MG Tablet 1 tablet at bedtime as needed Orally Once a day , Taking guaiFENesin 400 MG Tablet 1 tablet as needed Orally every 4 hrs , Taking Lisinopril 10 MG Tablet 1 tablet Orally Once a day , Taking Montelukast Sodium 10 MG Tablet 1 tablet Orally Once a day , Taking Multivitamin , Taking oxyCODONE-Acetaminophen 5-325 MG Tablet 1 tablet as needed Orally every 6 hrs , Taking Pantoprazole Sodium 20 MG Tablet Delayed Release 1 tablet Orally Once a day , Taking Wixela Inhub , Not-Taking Albuterol , Not-Taking Fluconazole 200 MG Tablet 1 tablet Orally 1 at hs , Not-Taking Ibuprofen 800 MG Tablet 1 tablet with food or milk as needed Orally every 8 hrs , Not- Taking Topiramate 200 MG Tablet 1 tablet Orally Once a day , Unknown Diclofenac , Medication List reviewed and reconciled with the patient * Allergies:?Codeine, Benadryl . Objective: * Vitals:?Ht: 66 in, Wt:150lbs , Wt-k.04 kg, BMI:24.21Index, Temp:98.0F, BP:128/76mm Hg, HR:92/min, RR:20/min, Oxygen sat %:91%, Ht-cm: 167.64 cm. * Examination: ???General Examination: ?GENERAL APPEARANCE:?alert, well hydrated, in no distress.?EYES:?normal conjunctiva.?SKIN:?warm and dry.?HEART:?normal heart rate.?LUNGS:?normal respirations.?MUSCULOSKELETAL:?limited cervical and lumbar range of motion, patchy sensation changes in the bilateral upper extremities and the left lower extremity, mild Sims's reflex on the right, swelling to the lateral right hip.?EXTREMITIES:?moves all extremities well.?NEUROLOGIC:?alert and oriented, cerebellar function normal, cognitive exam grossly normal, antalgic gait.?PSYCH:?alert, oriented, cognitive function intact, cooperative with exam, good eye contact, mood/affect full range, speech clear.? Assessment: * Assessment: 1.?Cervicalgia - M54.2 (Prim jessica)???2.?Cervical radiculopathy - M54.12???3.?Spondylolisthesis at L5-S1 level - M43.17???4.?Lumbar radiculopathy - M54.16???5.?Scoliosis - M41.9??? Plan: * Treatment: * Procedure Codes:?3074F SYST BP LT 130 MM HG, 3078F DIAST BP < 80 MM HG * Follow Up:?Pt will call * Billing Information: * Visit Code:? 53625 Office Visit, Est Pt., Level 3. * Procedure Codes:? 3074F SYST BP LT 130 MM HG. 3078F DIAST BP < 80 MM HG. Care Plan Details* * Sign off status: Completed true * Provider:?Chris Rodrigues MD Date:?2023 Generated for Tiara ferris/Leah/eTransmitting on:?05/07/2024 09:45 AM CDT History and Physical Notes * Examination Category Sub-Category Detail Notes General Examination GENERAL APPEARANCE: alert, w ell hydrated, in no distress EYES: normal conjunctiva HEART: normal heart rate LUNGS: normal respirations NEUROLOGIC: alert and oriented, cerebellar function normal, cognitive exam grossly normal, antalgic gait SKIN: warm and dry EXTREMITIES: moves all extremitie s well MUSCULOSKELETAL: limited cervical and lumbar range of motion, patchy sensation changes in the bilateral upper extremities and the left lower extremity, mild Sims's reflex on the right, swelling to the lateral right hip PSYCH: alert, oriented, cog nitive function intact, cooperative with exam, good eye contact, mood/affect full range, speech clear
--- OUTSIDE RECORDS SUMMARY | 2024-05-07 09:46 | XMS_ITS ---
Author Name Unknown Organization [facility] Address [address] [place] [address] Care Team Providers Care Educational Director Name Role Phone [facility] Michael BROWNING Primary Care Provider Un available Abner Huffman Unavailable [phone] Allergies Allergen (clinical drug ingredient) Drug/Non Drug Allergy documented on EMR Reaction Allergy Type Onset Date Status diphenhydramine Benadryl Unknown Drug Allergy A ctive codeine Codeine Unknown Drug Allergy Active REASON FOR VISIT RT HIP Medications Medication SIG (Take, Route, Frequency, Duration) Notes Start Date End Date Status Ibuprofen 800 MG 1 tablet with food o r milk as needed Orally every 8 hrs Not-Taking Albuterol Not-Taking Fluconazole 200 MG 1 tablet Orally 1 at hs Not-Taking Topiramate 200 MG 1 tablet Orally Once a day Not-Taking Diclofenac Unknown Pantoprazole Sodium 20 MG 1 tablet Orall y Once a day Active Wixela Inhub Active Multivitamin Active oxyCODONE-Acetaminophen 5-325 MG 1 tablet as needed Orally every 6 hrs Active Montelukast Sodium 10 MG 1 tablet Orally Once a day Active Cetirizine HCl 10 MG 1 tablet Orally Onc e a day Active Cyclobenzaprine HCl 10 MG 1 tablet at be dtime as needed Orally Once a day Active Clindamycin HCl 300 MG 1 capsule Orally every 6 hrs Active Lisinopril 10 MG 1 tablet Orally Once a day Active guaiFENesin 400 MG 1 tablet as needed Orally every 4 hrs Active Aspirin 81 Active Allopurinol 300 MG 1 tablet Orally Once a day Active Social History Tobacco Use: Social History Observation Description Date Details (start date - stop date) Former Smoker NA - NA Tobacco Control (Standard) Question Answer Notes Tobacco use: Former smoker How long has it been since you last smoked? 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) Active confirmed Problem 1139649737701132 Nontraumatic complete tear of left rotator cuff (M75.122) Active confirmed Vital Signs Blood pressure systolic 148 mm Hg 03/26/20 24 Blood pressure diastolic 78 mm Hg 024 Heart Rate 72 /min 03/26/2024 Respiratory Rate 20 /min 03/26/2024 Height 66 in 03/26/2024 Weight 145.5 lbs 03/26/2024 BMI 23.48 kg/m2 03/26/2024 Oximetry 88 % 03/26/2024 Height-cm 167.64 cm 03/26/2024 Weight-kg 66 kg 03/26/2024 Encounters Encounter Location Date Provider Diagnosis [facility] [address] [place] [phone] 03/26/2024 Abner Huffman Nontraumatic complet e tear of right rotator cuff M75.121 and Nontraumatic complete tear of left rotator cuff M75.122 Assessments Encounter Date Diagnosis (ICD Code) Assessment Notes Treat ment Notes Treatment Clinical Notes 03/26/2024 Nontraumatic complete tear of right rotator cuff (ICD-10 - M75.121) 03/26/2024 Nontraumatic complete tear of left rotator cuff (ICD-10 - M75.122) Plan Of Treatment Next Appt Details Provider Name:Abner Huffman , 05/28/2024 10:00:00 AM, [address] [place], [address], Provider Name:Chris Rodrigues, 09/18/2024 01:00:00 PM, [address] [place], [address], Medications Administered Medication Instructions Date of Administration Dosage Notes BUPivacaine HCl 03/26/2024 10 mL Right autumn ulder joint Lidocaine 03/26/2024 2 mL Right Shoulder Joint DEPO-Medrol 03/26/2024 40 mg Right Shoulde r Joint DEPO-Medrol 03/26/2024 40 mg Left Shoudler Joint Lidocaine 03/26/2024 2 mL Left Sh[place]ler Joint BUPivacaine HCl 03/26/2024 10 mL Left Shou dler Joint Progress Notes * Marcos MORAN WDOB:1969 (53 yo M)Acc No.[id number]:03/26/2024 Patient:?Marcos MORAN Provider:?Abner Huffman MD :1970???Age:53 Y???Sex:Male Fabian e:03/26/2024 Address:[address] [place], [place] [id number] Pcp:Michael Marlow, DO Check In:09:43 AM CSTCheck O ut:11:16 AM 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 Final cultures including fungal cultures have come back negative. He reportedly has been limiting his weightbearing as best as possible. He has bilateral cuff tear arthropathy it is difficult for him to use crutches. He states today his biggest problem is pain in both shoulders the right more than the left. If he has pain day and night. He has difficulty raising his arms even to shoulder height. He states he was seen in the past before and told he had massive rotator cuff tears but was too young for reverse total shoulder. * Medical History:? * Surgical History:?Right Knee 1995Right Femur 1991Right Femur 1992Left Shoulder 2007Low Back [...] Capsule 1 capsule Orally every 6 hrs Cyclobenzaprine HCl 10 MG Tablet 1 tablet at bedtime as needed Orally Once a day guaiFENesin 400 MG Tablet 1 tablet as [...] 1 capsule Orally every 6 hrs Taking Cyclobenzaprine HCl 10 MG Tablet 1 tablet at bedtime as needed Orally Once a day Taking guaiFENesin 400 MG Tablet 1 tablet as needed Orally every 4 hrs Taking Lisinopril 10 MG Tablet 1 tablet Orally Once a day Taking Montelukast Sodium 10 MG Tablet 1 tablet Orally Once a day Taking Multivitamin Taking oxyCODONE-Acetaminophen 5-325 MG Tablet 1 tablet as needed Orally every 6 hrs Taking Pantoprazole Sodium 20 MG Tablet Delayed Release 1 tablet Orally Once a day Taking Wixela Inhub Not-TakingAlbuterol Fluconazole 200 MG Tablet 1 tablet Orally 1 at hs Ibuprofen 800 MG Tablet 1 tablet with food or milk as needed Orally every 8 hrs Topiramate 200 MG Tablet 1 tablet Orally Once a day Not-Taking Albuterol Not- Taking Fluconazole 200 MG Tablet 1 tablet Orally [...] [Allergies Verified] Objective: * Vitals:?Ht: 66 in, Wt:145.5l bs, Wt-k kg, BMI:23.48Index, BP:148/78mm Hg, HR:72/min, RR:20/min, Oxygen sat %:88%, O2 Source: ra, Ht-cm: 167.64 cm. * Examination: ???General Examination: ???On examination of the left hip his incision is clean. He has no pain with motion of the hip. He can abduct his hip away from his body in the lateral position Both shoulders can passively flex to 150 degrees and actually rotated 60 degrees.Is unable to abduct his arm away from his body. He has no significant external rotator strength. Belly press test are positive bilaterally. ??? Assessment: * Assessment: 1.?Nontraumatic complete tea r of right rotator cuff - M75.121 (Primary)???2.?Nontraumatic complete tear of left rotator cuff - M75.122??? Marcos has clinical and ra diographical findings consistent with cuff tear arthropathy on the left and a clinical examination confirming a similar diagnoses on the right. I told him the only operation at this point would be reverse total shoulder. Certainly this is more than we could consider when he is recovering from hip surgery. He understands that his age is an issue as well. I told him we could try corticosteroid injections. I told him this may help with pain and perhaps improve function. He agreed to bilateral shoulder injections. Will set him up with outpatient physical therapy for his right hip Plan: * Treatment: * Procedures:?After extensive Chloraprep cleansing, the subacrominal space of the left and right shoulder were injected with 1mL of DepoMedrol, 2mL of bupivacaine, and 2mL of lidocaine each. No adverse reactions were noted. Band aids was put on area of injection. ? * Therapeutic Injections:? Lidocaine/Xylocaine 1% : 2 mL (Dose No:1) (Route: Other/Miscellaneous) given by Abner Huffman MD on right hip (Nontraumatic complete tear of right rotator cuff, Nontraumatic complete tear of left rotator cuff)??? Lidocaine/Xylocaine 1% : 2 mL (Dose No:1) (Route: Other/Miscellaneous) given by Abner Huffman MD on Left Joint (Nontraumatic complete tear of right rotator cuff, Nontraumatic complete tear of left rotator cuff)??? Bupivicaine : 10 mL (Dose No:1) (Route: Other/Miscellaneous) given by Abner Huffman MD on Right Joint (Nontraumatic complete tear of right rotator cuff, Nontraumatic complete tear of left rotator cuff)??? Bupivicaine : 10 mL (Dose No:1) (Route: Other/Miscellaneous) given by Abner Huffman MD on Left Joint (Nontraumatic complete tear of right rotator cuff, Nontraumatic complete tear of left rotator cuff)??? Depo-Medrol/Methylprednisolone per 40mg : 40 mg (Dose No:1) (Route: Other/Miscellaneous) given by Abner Huffman MD on Right Joint (Nontraumatic complete tear of right rotator cuff, Nontraumatic complete tear of left rotator cuff)??? Depo-Medrol/Methylprednisolone per 40mg : 40 mg (Dose No:1) (Route: Other/Miscellaneous) given by Abner Huffman MD on Left Joint (Nontraumatic complete tear of right rotator cuff, Nontraumatic complete tear of left rotator cuff) * Procedure Codes:?50278 DRAIN /INJECT, JOINT/[id number] DRAIN/INJECT, JOINT/BURSA [id number] INJ BUPIVICAINE HYDROCHLORID 30 ML Lidocaine/Xylocaine 1%J1010 Injection, methylprednisolone acetate, 1 mg, Units: 40.00 * Billing Information: * Visit Code:? 98842 Office Visit, Est Pt., Level 3. * Procedure Codes:? 61303 DRAIN/INJECT, JOINT/BURSA. DRAIN/INJECT, JOINT/BURSA. Bupivicaine. S0020 INJ BUPIVICAINE HYDROCHLORID 30 ML. Lidocaine/Xylocaine 1%. J1010 Injection, methylprednisolone acetate, 1 mg. Units: 40.00. * Sign off status: Completed true * Provider:?Abner Huffman MD Date:?03/26 Generated for Tiara ferris/Leah/eTransmitting on:?05/07/2024 09:46 AM CDT
--- OUTSIDE RECORDS SUMMARY | 2024-05-07 09:46 | XMS_ITS | Patient Health Record ---
Author Name Unknown Organization 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 Name Role Phone [facility] Michael BROWNING Primary Care Provider Un available Abner Huffman Unavailable [phone] Chris Rodrigues Unavailable [phone] Tavo Griggs Unavailable [phone] Allergies Allergen (clinical drug ingredient) Drug/Non Drug Allergy documented on EMR Reaction Allergy Type Onset Date Status diphenhydramine Benadryl Unknown Drug Allergy A ctive codeine Codeine Unknown Drug Allergy Active Results Component Value Reference Range Notes MRI LE JT w/o Cont [id number] Reviewed date:03/20/2024 08:02:51 AM Interpretation: Performing Lab: Notes/Report: dnu=[id number]&org=iSite lok=[id number] &o rg=iSite XR Outside CD Reviewed date:01/05/2024 08:57:04 AM Interpretation: Performing Lab: Notes/Report: kwf=[id number]&org=iSite gsy=[id number] &o rg=iSite Schedule Confirmation Reviewed date:05/03/2024 03:12:27 PM Interpretation: Performing Lab: Notes/Report: MRI LE JT w/o Cont RT Schedule Confirmation Reviewed date:05/03/2024 03:12:27 PM Interpretation: Performing Lab: Notes/Report: MRI LE JT w/o Cont RT Culture Fungus [id number] Reviewed date:03/19/2024 07:42:53 PM Interpretation: Performing Lab: Notes/Report: Final SEE NOTE [address] CLIA Number: [id number] [place] [address] Culture negative for Fungi Performed By: [employer] Sales Representative: Sergio Key MD, PhD WBC Auto Diff--[id number] Reviewed date:02/09/2024 06:21:59 PM Interpretation: Performing Lab: Notes/Report: Added by Discern Rules Neutro Auto% 70.0 40.0-70.0 % Lymph Auto% 17.4 22.0-44.0 % [place] Auto% 10.4 3.0-7.0 % Eos Auto% 1.4 2.0-4.0 % Baso Auto% 0.4 0.0-1.0 % NRBC% .00 .00-.20 /100 intact WBC's Neutro Abs 3.51 .80-7.70 Absolute Neutrophil Count 3510 Lymph Abs .87 .10-4.10 [place] Abs .52 .20-1.00 Eos Abs .07 .00-.40 Baso Abs .02 .00-.20 NRBC# .00 .00-.20 Imm Gran Abs .02 .00-.10 Imm Gran% .4 .0-.4 % Chest PA/Lat-97680 Reviewed date:02/09/2024 06:21:59 PM Interpretation: Performing Lab: Notes/Report: See Below For Report Chest PA/Lat Diagnosis Description: Strain of muscle, fascia and tendon of right hip, initial encounter Read See Below For Report Chest PA/Lat-25080 Reviewed date:02/09/2024 06:21:59 PM Interpretation: Performing Lab: Notes/Report: yjh=[id number]&org=iSite fnx=[id number] &o rg=iSite CBC Reflex Man Diff 59156, 8 5007 Reviewed date:02/09/2024 06:21:59 PM Interpretation: Performing Lab: Notes/Report: Diagnosis Description: Strain of muscle, fascia and tendon of right hip, initial encounter WBC 5.0 4.5-11.0 X10'3 RBC 4.40 4.50-5.90 X10'6 Hgb 14.3 13.5-17.5 G/DL Hct 43.5 41.0-53.0 % MCV 98.9 80.0-100.0 FL MCH 32.5 27.0-31.0 PG MCHC 32.9 31.0-37.0 G/DL Platelet 232 150-400 X10'3 RDW-SD 46.7 35.0-49.0 FL RDW-CV 12.8 12.2-15.6 % MPV 9.5 9.2-12.0 FL Review Auto Diff Conf Basic Metabolic Panel (BMP) [id number] Reviewed date:02/09/2024 06:21:59 PM Interpretation: Performing Lab: Notes/Report: Diagnosis Description: Strain of muscle, fascia and tendon of right hip, initial encounter Sodium 140 136-145 MMOL/L Potassium 4.7 3.5-5.1 MMOL/L Chloride 107 98-107 MMOL/L CO2 27.9 20.0-31.0 MMOL/L Glucose Serum 108 71-110 MG/DL Testing perfor med at [address] [place] [address]. CLIA ID#: [id number] BUN 25 7-21 MG/DL Creat .93 .57-1.17 MG/DL Use of this assay is not recommended for patients undergoing treatment with phenindione, due to the potential for falsely depressed results. X-ukdwfi-q-benzoquinon e imine (NAPQI) is a metabolite of acetaminophen, NAPQI concentrations of apparoximately 10 mg/L correlation to toxic levels of acetaminophen demonstrates a greater than or equil to 10% change in results. NAPQI concentrations greater than this may lead to falsely depressed results for patient samples. GFR 97.6 Calculation per formed from GFR calculator provided by the [employer]. Glomerular Filtration rate(GRF) is the best overall index of kidney function. Normal GFR varies according to age,sex, body size, and declines with age. The [employer] recommends using the CKD-EPI Creatinine Equation(2020) to estimate GFR. Anion Gap 10 5-15 BUN/Creat Ratio 26.9 12.0-20.0 % Calcium 9.3 8.7-10.4 MG/DL Osmo Serum,Calculated 295 280-300 MOSM/KG Culture Body Fluid [id number] Reviewed date:02/13/2024 08:18:20 AM Interpretation: Performing Lab: Notes/Report: Culture Body Fluid MARCSO Estevez Culture Body Fluid t: Culture Body Fluid Culture Body Fluid Access [id number] Culture Body Fluid n: Culture Body Fluid Microbiology Culture Body Fluid PROCEDURE: Culture Body Fluid [] Culture Body Fluid SOURCE: Body Fl BODY SITE: Hip R Culture Body Fluid COLLECTED DATE/TIME: 02/09/2024 15:00 CDT RECEIVED DATE/TIME: 02/09/2024 16:51 CDT Culture Body Fluid START DATE/TIME: 02/09/2024 16:51 CDT FREE TEXT SOURCE: Culture Body Fluid FINAL REPORT Culture Body Fluid Final Report [] Culture Body Fluid Verified Date/Time: 02/12/2024 11:05 CDT Culture Body Fluid No growth at 72 hours MRI LE JT w/o Cont [id number] Reviewed date:03/20/2024 08:00:35 AM Interpretation: Performing Lab: Notes/Report: See Below For Report MRI LE JT w/o Cont RT Diagnosis Description: Pain in right hip Read See Below For Report XR Outside CD Reviewed date:03/20/2024 08:01:35 AM Interpretation: Performing Lab: Notes/Report: njq=[id number]&org=iSite zig=[id number] &o rg=iSite zzzMRI Outside CD (Not yet r eviewed by provider) Interpretation: Performing Lab: Notes/Report: ozy=[id number]&org=iSite hfp=[id number] &o rg=iSite zzzMRI Outside CD (Not yet r eviewed by provider) Interpretation: Performing Lab: Notes/Report: fmg=[id number]&org=iSite opv=[id number] &o rg=iSite Reason For Referral Reason back pain Diagnosis 1 Back pain (M54.9) Referring Provider First Name Michael Referring Provider Last Name [facility] Referring Provider Speciality Internal M edicine Referred Organization [facility] [place] Referred Provider Chris Rodrigues Referred Address [address],[address], Referral Priority Routine Reason Eval and treat right hip pain and swelling Diagnosis 1 Swelling (R60.9) Diagnosis 2 Right hip pain (M25. 551) Referral Organization [facility] Referring Provider First Name Chris Referring Provider Last Name Ravi Referring Provider Speciality Neurosurge ry Referred Organization [facility] Referred Provider Taov Griggs Referred Address [address],[place] [facility],[address],[place] Referred Provider Specialty Orthopedic S urgery Referral Priority Routine Reason Neck pain Diagnosis 1 Neck pain (M54.2) Referring Provider First Name Michael Referring Provider Last Name [facility] Referring Provider Speciality Internal M edicine Referred Organization [facility] [place] Referred Provider Chris Rodrigues Referred Address [address],[place],[address],[place] Referral Priority Routine Reason Please provide patie nt with walker S/P RIGHT gluteus medius tear of right hip Diagnosis 1 Strain of muscle, fa scia and tendon of right hip, initial encounter (S76.011A) Referral Organization [facility] Referring Provider First Name Abner Referring Provider Last Name Armida Referring Provider Speciality Orthopedic Surgery Referred Provider Cesario [facility] Referral Priority Routine Medications Medication SIG (Take, Route, Frequency, Duration) Notes Start Date End Date Status Aspirin 81 Active Albuterol Not-Taking Allopurinol 300 MG 1 tablet Orally Once a day Active Wixela Inhub Active Cetirizine HCl 10 MG 1 tablet Orally Onc e a day Active Fluconazole 200 MG 1 tablet Orally 1 at hs Not-Taking Multivitamin Active Montelukast Sodium 10 MG 1 tablet Orally Once a day Active Pantoprazole Sodium 20 MG 1 tablet Orall y Once a day Active oxyCODONE-Acetaminophen 5-325 MG 1 tablet as needed Orally every 6 hrs Active Cyclobenzaprine HCl 10 MG 1 tablet at be dtime as needed Orally Once a day Not-Taking Topiramate 200 MG 1 tablet Orally Once a day Not-Taking Clindamycin HCl 300 MG 1 capsule Orally every 6 hrs Active Ibuprofen 800 MG 1 tablet with food o r milk as needed Orally every 8 hrs Not-Taking Lisinopril 10 MG 1 tablet Orally Once a day Active guaiFENesin 400 MG 1 tablet as needed Orally every 4 hrs Active Diclofenac Unknown Social History Tobacco Use: Social History Observation Description Date Details (start date - stop date) Former Smoker NA - NA Tobacco Control (Standard) Question Answer Notes Tobacco use: Former smoker How long has it been since you last smoked? Grea ter than 10 years AUDIT-C (Standard) Question Answer Notes Did you have a drink containing alcohol in the p ast year? 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) Active confirmed Problem 9789781163485876 Nontraumatic complete tear of left rotator cuff (M75.122) Active confirmed Problem Solitary pulmonary nodule (830672906) Incidental lung nodule, greater than or equal to 8mm (R91.1) Active confirmed Vital Signs Heart Rate 75 /min 04/23/2024 Temperature 98.0 degrees Fahrenheit 03/27/2024 Respiratory Rate 18 /min 04/23/2024 Height-cm 167.64 cm 04/23/2024 Oximetry 98 % 04/23/2024 Blood pressure diastolic 80 mm Hg 04/23/2024 Weight-kg 70 kg 04/23/2024 Height 66 in 04/23/2024 Blood pressure systolic 148 mm Hg 04/23/2024 Weight 154.32 lbs 04/23/2024 BMI 24.91 kg/m2 04/23/2024 Encounters Encounter Location Date Provider Diagnosis [facility] [address] [address] 12/20/2023 Chris Rodrigues Spondylolisthesis at L5-S1 level M43.17 ; Lumbar spondylosis M47.816 ; Scoliosis M41.9 ; Right hip pain M25.551 ; Cervicalgia M54.2 and Lumbar radiculopathy M54.16 [facility] [address] [place] [address] 01/06/2024 Tavo Griggs Hip pain, right M25. 551 [facility] [place] [address] [place] [address] 01/17/2024 Chris Rodrigues Cervical radiculopat hy M54.12 ; Cervical spinal stenosis M48.02 ; Neck pain M54.2 ; Lumbar radiculopathy M54.16 and Spondylolisthesis at L5-S1 level M43.17 [facility] [address] [place] [address] 02/03/2024 Tavo Griggs Abscess of hip, righ t L02.415 [facility] [place] [address] [facility] [place] [address] 02/06/2024 Abner Huffman Tear of right gluteu s medius tendon, initial encounter S76.011A ; Abscess of hip, right L02.415 and Exposure to other specified factors, sequela X58.XXXS [facility] [place] [address] [facility] [place] [address] 02/09/2024 Abner Huffman [facility] [address] [place] [address] 02/22/2024 Abner Huffman Postoperative state Z98.890 [facility] [address] [place] [address] 03/26/2024 Abner Huffman Nontraumatic complet e tear of right rotator cuff M75.121 and Nontraumatic complete tear of left rotator cuff M75.122 [facility] [place] [address] [place] [address] 03/27/2024 Chris Ravi Cervicalgia M54.2 ; Cervical radiculopathy M54.12 ; Spondylolisthesis at L5-S1 level M43.17 ; Lumbar radiculopathy M54.16 and Scoliosis M41.9 [facility] [place] [address] [facility] [place] [address] 04/23/2024 Abner Huffman Postoperative state Z98.890 [facility] [place] [address] [facility] [place] [address] 01/05/2024 Tavo Griggs Hip pain, right M25. 551 [facility] [place] [address] [facility] [place] [address] 01/30/2024 Tavo Griggs [facility] [address] [place] [address] 02/06/2024 Tavo Griggs Assessments Encounter Date Diagnosis (ICD Code) Assessment Notes Treatment Notes Treatment Clinical Notes 12/20/2023 Lumbar spondylosis (ICD-10 - M47.816) 12/20/2023 Spondylolisthesis at L5-S1 level (ICD-10 - M43.17) 01/17/2024 Cervical radiculopat hy (ICD-10 - M54.12) 01/06/2024 Hip pain, right (ICD-10 - M25.551) Dividual has right hip pain. I have no x-rays. Apparently x-rays were made at the local [facility] but I do not have access to these. He did not bring a copy of these either 01/05/2024 Hip pain, right (ICD-10 - M25.551) 03/27/2024 Cervicalgia (ICD-10 - M54.2) 03/27/2024 Cervical radiculopat hy (ICD-10 - M54.12) 01/17/2024 Cervical spinal stenosis (ICD-10 - M48.02) 02/06/2024 Abscess of hip, righ t (ICD-10 - L02.415) 02/06/2024 Tear of right gluteu s medius tendon, initial encounter (ICD-10 - S76.011A) 02/22/2024 Postoperative state (ICD-10 - Z98.890) 03/26/2024 Nontraumatic complet e tear of right rotator cuff (ICD-10 - M75.121) 03/26/2024 Nontraumatic complet e tear of left rotator cuff (ICD-10 - M75.122) 04/23/2024 Postoperative state (ICD-10 - Z98.890) 02/03/2024 Abscess of hip, righ t (ICD-10 - L02.415) An MRI of the hip has been done. It shows a fluid collection of the right hip consistent with a seroma and/or abscess. 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 I think this will probably need to be drained. Because I am leaving town and going to see if one of my associates can do this. 02/06/2024 Exposure to other specified factors, sequela (ICD-10 - X58.XXXS) 12/20/2023 Scoliosis (ICD-10 - M41.9) 03/27/2024 Spondylolisthesis at L5-S1 level (ICD-10 - M43.17) 01/17/2024 Neck pain (ICD-10 - M54.2) 01/17/2024 Lumbar radiculopathy (ICD-10 - M54.16) 12/20/2023 Right hip pain (ICD- 10 - M25.551) 03/27/2024 Lumbar radiculopathy (ICD-10 - M54.16) 03/27/2024 Scoliosis (ICD-10 - M41.9) 01/17/2024 Spondylolisthesis at L5-S1 level (ICD-10 - M43.17) 12/20/2023 Cervicalgia (ICD-10 - M54.2) 12/20/2023 Lumbar radiculopathy (ICD-10 - M54.16) 12/20/2023 Other The patient's symptoms and clinical findings were reviewed and were found to be rather complex. The lumbar imaging was reviewed and discussed with the patient. The patient has reason for low back pain. I suspect the bulk of his back related pain is coming from L5-S1 where there is a mild spondylolisthesis and a disc injury that has some edema in the disc. What is unclear is the swelling on the right lateral hip and the severe muscle spasms in his arms and legs. Given his history with the [place] Fever, I would like to refer him to Dr. Griggs for evaluation of the right hip before making a plan for the back. The patient was told that if he were to spike temperature in the next few days he needs to go to the ER. He states his understanding. As far as his neck and upper extremity pain is concerned I [facility] to be [facility] for [facility]. The patient does show some signs of cervical myelopathy, but they are not profound. I will see him back after the appointment with Dr. Griggs. The patient is in agreement. ROS reviewed I Alyssa Ford LPN am scribing for, and in the presence of Chris Rodrigues MD. I, Chris Rodrigues, personally performed the services described in this documentation, as scribed by Alyssa Ford LPN in my presence, and it is both accurate and complete. 01/17/2024 Other The patient is scheduled for an MRI of the right hip per Dr. Griggs. The cervical imaging was reviewed and discussed with the patient. He has severe cervical stenosis from C3 to C7. I am more concerned about the neck rather than the back at this time, however the patient needs to find out what is going on with his right hip before discussing neck surgery. I told the patient before he has any type of surgery, including a spinal cord stimulator he will need to make sure his fungal infection is resolved. The patient says he is having trouble making contact with his ID physician. He was encouraged to keep trying. I will see the patient back after he has his follow-up with Dr. Griggs on his right hip issue. Once he is cleared on his hip with Dr. Griggs and with his ID physician, we most likely will discuss surgery for the neck. Questions were asked and answered to the patient's satisfaction. He states his understanding and is in agreement. ROS reviewed I Alyssa Ford LPN am scribing for, and in the presence of Chris Rodrigues MD. Chris Cm, personally performed the services described in this documentation, as scribed by Alyssa Ford LPN in my presence, and it is both accurate and complete. 03/27/2024 Other The patient continues to have [...] in the presence of Chris Rodrigues MD. Chris Cm, personally performed the services described in this documentation, as scribed by Alyssa Ford LPN in my presence, and it is both accurate and complete. Plan Of Treatment Pending Test Test Name Order Date Electrocardiogram 12 Lead Tracing-[id number] 02/06/2024 zzzMRI Outside CD 10/04/2023 zzzMRI Outside CD 10/12/2023 IH Hip 2-3 View Uni Right - [id number] 2023 Next Appt Details Provider Name:Abner Bell Armida , 05/28/2024 10:00:00 AM, [address], [place], [address], Provider Name:Chris Ravi, 09/18/2024 01:00:00 PM, [address], [place], [place], [address], Insurance Providers Payer Name Payer Address Payer Phone Subscriber Number Group Number Insured Name Patient Relationship to Insured Coverage Start Date Coverage End Date [employer] [address] [place] [address] [id number] Marcos Moran Self - patient is the insured Medications Administered Medication Instructions Date of Administration Dosage Notes BUPivacaine HCl 03/26/2024 10 mL Right autumn ulder joint BUPivacaine HCl 03/26/2024 10 mL Left [place] Joint DEPO-Medrol 03/26/2024 40 mg Right Shoulde r Joint DEPO-Medrol 03/26/2024 40 mg Left [place] Joint Lidocaine 03/26/2024 2 mL Right Shoulder Joint Lidocaine 03/26/2024 2 mL Left [place] Joint Medical (General) History Medical History History ICD Code measles Mumps Chicken Pox Pneumonia Arthritis Migraine Back Trouble HBP Asthma Stroke Surgical History Surgery Date(Month/Year) Right Knee 1995 Right Femur 1990 Right Femur 1992 Left Shoulder 2007 Low Back RFA 23-24 EMMY 20 Gluteus Medius Repair 01/2024 Hospitalization History Reason Date(Month/Year) Stroke 2019
--- OUTSIDE RECORDS SUMMARY | 2024-05-07 09:47 | XMS_ITS | Patient Health Record ---
Author Name Unknown Organization [facility] Address [address], [place] [id number] Care Team Providers Care Vice President Medical Affairs Name Role Phone [facility] Primary Care Provider Vibha Michael Rodriguez MD Unavailable [phone] [place], [place] Unavailable Unavailable Quynh Stovall Unavailable [phone] ALLERGIES Allergen (clinical drug ingredient) Drug/Non Drug Allergy documented on EMR Reaction Allergy Type Onset Date Status Vicodin Unknown Drug Allergy Active codeine codeine anaphylaxis Drug Allergy Activ e chlorthalidone Unknown Drug Allergy Ac tive diphenhydramine Benadryl Unknown Drug Allergy A ctive mometasone Unknown Drug Allergy Active RESULTS Component Value Reference Range Notes Urine tox screen / MS if ind icated Reviewed date:03/15/2024 09:00:35 AM Interpretation:Consistent Performing Lab: Notes/Report: Consistent REASON FOR REFERRAL Diagnosis 1 Vertebrogenic low ba ck pain (M54.51) Referring Provider First Name Carl millan Referring Provider Last Name [place] Referred Organization [facility] Referred Provider Michael Pineda Referred Address [address] [place], [id number], Referred Provider Specialty Pain Managem ent Referral Priority Routine Diagnosis 1 Vertebrogenic low ba ck pain (M54.51) Referring Provider First Name Carl Macu yana Referring Provider Last Name [place] Referred Organization [facility] Referred Provider Michael Pineda Referred Address [address] [place], [id number], Referred Provider Specialty Pain Managem ent Referral Priority Routine MEDICATIONS Medication SIG (Take, Route, Frequency, Duration) Notes Start Date End Date Status allopurinol 300 mg 1 tab(s) orally once a day for 30 day(s) Active Wixela Inhub 500 mcg-50 mcg 1 INH inhaled 2 times a day Active aspirin 81 mg 1 tab(s) orally once a day for 30 day(s) Active topiramate 200 mg 1 tab(s) orally once a day Active albuterol 90 mcg/inh 2 puff(s) inhaled every 6 hours 04/13/2023 Active Vitamin D3 50 mcg 1 tab(s) orally once a day for 30 day(s) Active ibuprofen 800 mg 1 tab(s) orally 3 times a day Active lisinopril 20 mg 1 tab(s) orally once a day for 30 day(s) Active cetirizine 10 mg 1 tab(s) orally once a day Active guaiFENesin 400 mg 1 tab(s) orally every 6 hours Active montelukast 10 mg 1 tab(s) orally once a day for 30 day(s) Active acetaminophen-oxycodone 325 mg-5 mg 1-2 tabs orally Q4-6H prn pain (max 6/day; hold within 4H of planned sleep) for 28 days ICD-10: G89.29, (auth as per 03/15/24 visit) 04/12/2024 Active One A Day Men's Complete Multiple Vitamins with Minerals 1 tab(s) orally once a day for 30 day(s) Active pantoprazole 20 mg 1 tab(s) orally once a day Active SOCIAL HISTORY Sex Assigned At : Social History Observation Description Sex Assigned At Unknown alcohol Question Answer Notes Did you have a drink contain ing alcohol in the past year? Yes How often did you have a dri nk containing alcohol in the past year? Monthly or less (1 point) How many drinks did you have on a typical day when you were drinking in the past year? 1 or 2 (0 points) How often did you have six o r more drinks on one occasion in the past year? 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) Active confirmed High risk drug monitoring status (698257935) Problem Other specified anxiety disorders (F41.8) Active confirmed Anxiety disorde r (179249804) Problem Obstructive sleep apnea (adult) (pediatric) (G47.33) Active confirmed Obstructive sle ep apnea syndrome (00109050) Problem Other chronic pain (G89.29) Active confirmed Chronic pain (09294076) Problem Chronic pain syndrome (G89.4) Active confirmed Chronic negra n syndrome (848245647) Problem Intervertebral disc disorders with radiculopathy, lumbar region (M51.16) Active confirmed Radiculopathy d ue to lumbar intervertebral disc disorder (528013325559798) Problem Other senior living (current) drug therapy (Z79.899) Active confirmed Long-term current use of drug therapy (114386212) Problem Myalgia of auxiliary muscles, head and neck (M79.12) Active confirmed Myalgia (55432380) Problem Myalgia, other site (M79.18) Active confirmed Muscle pain (66938134) Problem Headache, unspecified (R51.9) Active confirmed Headache (32639513) Problem Vertebrogenic low back pain (M54.51) Active confirmed Pain in lumbar spine (952364370) VITAL SIGNS Temperature 97.8 degrees Fahrenheit 03/15/2024 Blood pressure diastolic 106 mm Hg 03/15/2024 Oximetry 95 % 03/15/2024 Height 63 in 03/15/2024 Blood pressure systolic 147 mm Hg 03/15/2024 Weight 147 lbs 03/15/2024 BMI 26.04 kg/m2 03/15/2024 Encounters Encounter Location Date Provider Diagnosis [facility] [address] [place], [place] [id number] 05/19/2023 Michael Pineda [facility] [address] [place], [place] [id number] 06/16/2023 Quynh Jiang Other chronic pain G89.29 ; Vertebrogenic low back pain M54.51 ; Myalgia, other site M79.18 and Obstructive sleep apnea (adult) (pediatric) G47.33 [facility] [address] [place], [place] [id number] 06/21/2023 Michael Pineda Other chronic pain G89.29 ; Myalgia of auxiliary muscles, head and neck M79.12 ; Vertebrogenic low back pain M54.51 and Obstructive sleep apnea (adult) (pediatric) G47.33 [facility] [address] [place], [place] [id number] 07/14/2023 Michael Pineda [facility] [address] [place], [place] [id number] 08/16/2023 Michael Pineda [facility] [address] [place], [place] [id number] 08/30/2023 Michael Pineda Spondylosis without myelopathy or radiculopathy, lumbar region M47.816 ; Other specified anxiety disorders F41.8 ; Myalgia of auxiliary muscles, head and neck M79.12 ; Headache, unspecified R51.9 ; Other chronic pain G89.29 ; Vertebrogenic low back pain M54.51 and Obstructive sleep apnea (adult) (pediatric) G47.33 [facility] [address] [place], [place] [id number] 09/15/2023 Michael Pineda Spondylosis without myelopathy or radiculopathy, lumbar region M47.816 ; Other specified anxiety disorders F41.8 ; Myalgia of auxiliary muscles, head and neck M79.12 ; Headache, unspecified R51.9 ; Other chronic pain G89.29 ; Vertebrogenic low back pain M54.51 and Obstructive sleep apnea (adult) (pediatric) G47.33 [facility] [address] [place], [place] [id number] 09/29/2023 Michael Pineda Spondylosis without myelopathy or radiculopathy, lumbar region M47.816 ; Other specified anxiety disorders F41.8 ; Myalgia of auxiliary muscles, head and neck M79.12 ; Headache, unspecified R51.9 ; Other chronic pain G89.29 ; Vertebrogenic low back pain M54.51 and Obstructive sleep apnea (adult) (pediatric) G47.33 [facility] [address] [place] [id number] 10/03/2023 Michael Pineda Spondylosis without myelopathy or radiculopathy, lumbar region M47.816 and Other specified anxiety disorders F41.8 [facility] [address] [place], [place] [id number] 10/04/2023 Michael Pineda Spondylosis without myelopathy or radiculopathy, lumbar region M47.816 and Other specified anxiety disorders F41.8 [facility] [address] [place], [place] [id number] 10/10/2023 Michael Pineda [facility] [address] [place] [id number] 10/17/2023 Michael Pineda Spondylosis without myelopathy or radiculopathy, lumbar region M47.816 and Other specified anxiety disorders F41.8 [facility] [address] [place], [place] [id number] 10/31/2023 Michael Pineda [facility] [address] [place], [place] [id number] 11/24/2023 Michael Pineda Other chronic pain G89.29 ; Vertebrogenic low back pain M54.51 ; Spondylosis without myelopathy or radiculopathy, lumbar region M47.816 ; Myalgia of auxiliary muscles, head and neck M79.12 ; Headache, unspecified R51.9 and Obstructive sleep apnea (adult) (pediatric) G47.33 [facility] [address] [place], [place] [id number] 12/22/2023 Michael Pineda [facility] [address] [place], [place] [id number] 01/19/2024 Quynh Jiang Other chronic pain G89.29 ; Vertebrogenic low back pain M54.51 ; Spondylosis without myelopathy or radiculopathy, lumbar region M47.816 ; Myalgia of auxiliary muscles, head and neck M79.12 ; Headache, unspecified R51.9 and Obstructive sleep apnea (adult) (pediatric) G47.33 [facility] [address] [place], [place] [id number] 01/25/2024 Michael Pineda Other chronic pain G89.29 ; Vertebrogenic low back pain M54.51 ; Spondylosis without myelopathy or radiculopathy, lumbar region M47.816 ; Myalgia of auxiliary muscles, head and neck M79.12 ; Headache, unspecified R51.9 and Obstructive sleep apnea (adult) (pediatric) G47.33 [facility] [address] [place], [place] [id number] 02/15/2024 Michael Pineda [facility] [address] [place], [place] [id number] 03/15/2024 Quynh Jiang Other chronic pain G89.29 ; Vertebrogenic low back pain M54.51 ; Spondylosis without myelopathy or radiculopathy, lumbar region M47.816 ; Myalgia of auxiliary muscles, head and neck M79.12 ; Headache, unspecified R51.9 ; Obstructive sleep apnea (adult) (pediatric) G47.33 and long-term (current) use of opiate analgesic Z79.891 [facility] [address] [place], [place] [id number] 04/12/2024 Michael Pineda ASSESSMENTS Encounter Date Diagnosis Assessment Notes Treatment Notes Treatment Clinical Notes 06/16/2023 Other chronic pain (ICD-10 - G89.29) Patient reports that taking his pain medication allows him to continue his [employer] business. Plan to continue oral opioid medication management. 06/16/2023 Vertebrogenic low back pain (ICD-10 - M54.51) Chronic lumbar spine pain. 06/21/2023 Other chronic pain (ICD-10 - G89.29) Patient reports that taking his pain medication allows him to continue his [employer] business. Plan to continue oral opioid medication management. 06/21/2023 Myalgia of auxiliary muscles, head and neck (ICD-10 - M79.12) Prior TPIs with history of benefit for myalgia pain and headache pain. Plan TPIs at today's visit. 08/30/2023 Spondylosis without myelopathy or radiculopathy, lumbar region (ICD-10 - M47.816) Plan bilateral L3 medial branch, bilateral L4 medial branch, bilateral L5 dorsal ramus diagnostic blocks; possible RFA if diagnostic blocks appreciated. Risks, benefits, and alternatives reviewed with patient. Questions answered to the patient's reported satisfaction. Preparation for procedure reviewed with patient; printed instructions given. 08/30/2023 Other specified anxiety disorders (ICD-10 - F41.8) Plan moderate IV sedation as needed wtih midazolam and / or fentanyl for the blocks. Consider MAC for RFA if RFA is indicated. 09/15/2023 Spondylosis without myelopathy or radiculopathy, lumbar region (ICD-10 - M47.816) Plan bilateral L3 medial branch, bilateral L4 medial branch, bilateral L5 dorsal ramus diagnostic blocks as previously scheduled; possible RFA if diagnostic blocks appreciated. Risks, benefits, and alternatives previously reviewed with patient. Questions answered to the patient's reported satisfaction at today's visit. Preparation for procedure previously reviewed with patient; printed instructions were given. 09/15/2023 Other specified anxiety disorders (ICD-10 - F41.8) Plan moderate IV sedation as needed wtih midazolam and / or fentanyl for the blocks. Consider MAC for RFA if RFA is indicated. 09/29/2023 Spondylosis without myelopathy or radiculopathy, lumbar region (ICD-10 - M47.816) Plan bilateral L3 medial branch, bilateral L4 medial branch, bilateral L5 dorsal ramus diagnostic blocks as previously scheduled; possible RFA if diagnostic blocks appreciated. Risks, benefits, and alternatives previously reviewed with patient. Questions answered to the patient's reported satisfaction at today's visit. Preparation for procedure previously reviewed with patient; printed instructions were given and reviewed again at today's visit. 09/29/2023 Other specified anxiety disorders (ICD-10 - F41.8) Plan moderate IV sedation as needed wtih midazolam and / or fentanyl for the blocks. Consider MAC for RFA if RFA is indicated. 10/04/2023 Spondylosis without myelopathy or radiculopathy, lumbar region (ICD-10 - M47.816) Bilateral L3 medial branch, bilateral L4 medial branch, bilateral L5 dorsal ramus diagnostic blocks completed with a 90% reduction in pain noted. Plan RFA since diagnostic blocks appreciated. Risks, benefits, and alternatives reviewed with patient at prior office visit. Questions answered to the patient's reported satisfaction. Preparation for procedure reviewed with patient by phone. 10/04/2023 Other specified anxiety disorders (ICD-10 - F41.8) Plan monitored anesthesia care. 10/17/2023 Spondylosis without myelopathy or radiculopathy, lumbar region (ICD-10 - M47.816) Plan bilateral lumbar RFA of L3, L4 medial branch and L5 dorsal ramus 10/03/2023 Spondylosis without myelopathy or radiculopathy, lumbar region (ICD-10 - M47.816) Plan lumbar diagnostic blocks: bilateral L3, L4 medial branch and bilateral L5 dorsal ramus 11/24/2023 Other chronic pain (ICD-10 - G89.29) Patient reports that taking his pain medication allows him to spend more time on his feet. Plan to continue oral opioid medication management. 11/24/2023 Vertebrogenic low back pain (ICD-10 - M54.51) Chronic lumbar spine pain. Verbal and written information regarding DCS trial / placement given to patient at 11/24/23 visit. [facility]. 01/19/2024 Other chronic pain (ICD-10 - G89.29) Patient reports that taking his pain medication allows him to work in his yard. Plan to continue oral opioid medication management. 01/19/2024 Vertebrogenic low back pain (ICD-10 - M54.51) Chronic lumbar spine pain. Verbal and written information regarding SCS trial / placement given to patient at 11/24/23 visit. [facility] Rodrigues. After evaluation, he was referred to Dr. Griggs for a knot on my right hip . MRI is scheduled for 01/2024. 01/25/2024 Other chronic pain (ICD-10 - G89.29) Patient reports that taking his pain medication allows him to be more active. Patient is not as active as he would like to be: he misses being able to take long walks. Plan to continue oral opioid medication management. 01/25/2024 Vertebrogenic low back pain (ICD-10 - M54.51) Chronic lumbar spine pain. Verbal and written information regarding SCS trial / placement given to patient at 11/24/23 visit. Patient has deferred on this treatment option due to his multiple medical problems and ongoing infectious disease. [facility] Rodrigues. After that evaluation, he was referred to Dr. Griggs for a knot on my right hip . Upcoming MRI is scheduled for later this month. 03/15/2024 Other chronic pain (ICD-10 - G89.29) Patient reports that taking his pain medication allows him to tolerate crutch use following right hip surgery. Plan to continue oral opioid medication management. 03/15/2024 Vertebrogenic low back pain (ICD-10 - M54.51) Chronic lumbar spine pain. 03/15/2024 Spondylosis without myelopathy or radiculopathy, lumbar region (ICD-10 - M47.816) Prior bilateral L3 medial branch, bilateral L4 medial branch, bilateral L5 dorsal ramus RFA procedure with history of efficacy that was greatly appreciated by patient for 1 year for lower lumbar and lower extremity pain and repeat RFA procedure has resulted in no benefit. 01/25/2024 Spondylosis without myelopathy or radiculopathy, lumbar region (ICD-10 - M47.816) Prior bilateral L3 medial branch, bilateral L4 medial branch, bilateral L5 dorsal ramus RFA procedure with history of efficacy that was greatly appreciated by patient for 1 year for lower lumbar and lower extremity pain and repeat RFA procedure has resulted in no benefit. 01/19/2024 Spondylosis without myelopathy or radiculopathy, lumbar region (ICD-10 - M47.816) Prior bilateral L3 medial branch, bilateral L4 medial branch, bilateral L5 dorsal ramus RFA procedure with history of efficacy and repeat RFA procedure with no benefit thus far reported by patient. After Rx visit, recommended sheet manager to set up OV for further evaluation by Dr. Pineda. 10/03/2023 Other specified anxiety disorders (ICD-10 - F41.8) Plan moderate IV sedation with midazolam and/or fentanyl 10/17/2023 Other specified anxiety disorders (ICD-10 - F41.8) Plan monitored anesthesia care 11/24/2023 Spondylosis without myelopathy or radiculopathy, lumbar region (ICD-10 - M47.816) Prior bilateral L3 medial branch, bilateral L4 medial branch, bilateral L5 dorsal ramus RFA procedure with history of efficacy and repeat RFA procedure with no efficacy. 09/29/2023 Myalgia of auxiliary muscles, head and neck (ICD-10 - M79.12) Prior TPIs with history of benefit for myalgia pain and headache pain. Plan TPIs at today's visit. 09/15/2023 Myalgia of auxiliary muscles, head and neck (ICD-10 - M79.12) Prior TPIs with history of benefit for myalgia pain and headache pain. Plan TPIs at today's visit. 08/30/2023 Myalgia of auxiliary muscles, head and neck (ICD-10 - M79.12) Prior TPIs with history of benefit for myalgia pain and headache pain. Plan TPIs at today's visit. 06/21/2023 Vertebrogenic low back pain (ICD-10 - M54.51) Chronic lumbar spine pain. 06/16/2023 Myalgia, other site (ICD-10 - M79.18) Prior TPIs with history of benefit for myalgia pain and headache pain. 06/16/2023 Obstructive sleep apnea (adult) (pediatric) (ICD-10 - G47.33) Patient has history of inability to tolerate CPAP. Updated sleep study completed on 11/04/22. 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. Treatment has started with follow up CT scans scheduled in 6 weeks. 06/21/2023 Obstructive sleep apnea (adult) (pediatric) (ICD-10 - G47.33) Patient has history of inability to tolerate CPAP. Updated sleep study completed on 11/04/22. 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. Patient reported that treatment was started with follow up CT scans scheduled. 08/30/2023 Headache, unspecified (ICD-10 - R51.9) TPIs with history of benefit for headache symptoms. Patient denied headache symptoms on 08/30/23. Patient reports Botox injections by Dr. Stone with benefit for headaches, however, neck weakness and difficulty holding head upright reported by patient in regards to the neck injection aspect of the Botox injections. Recommended patient discuss this with Dr. Stone. 09/15/2023 Headache, unspecified (ICD-10 - R51.9) TPIs with history of benefit for headache symptoms. Patient denied headache symptoms on 08/30/23 and 09/15/23. Patient reports prior Botox injections by Dr. Stone with history of benefit for headaches, however, neck weakness and difficulty holding head upright previously reported by patient in regards to the neck injection aspect of the Botox injections. Had recommended patient discuss this with Dr. Stone. Patient reports that his next visit with her is in October and that he does not anticipate asking for any more Botox injections. 09/29/2023 Headache, unspecified (ICD-10 - R51.9) TPIs with history of benefit for headache symptoms. Patient denied headache symptoms on 08/30/23 and 09/15/23 and 09/29/23. Patient reports prior Botox injections by Dr. Stone with history of benefit for headaches, however, neck weakness and difficulty holding head upright previously reported by patient in regards to the neck injection aspect of the Botox injections. Previously recommended patient discuss this with Dr. Stone. Patient reports that his next visit with her is upcoming. 11/24/2023 Myalgia of auxiliary muscles, head and neck (ICD-10 - M79.12) Prior TPIs with history of benefit for myalgia pain and headache pain. 01/19/2024 Myalgia of auxiliary muscles, head and neck (ICD-10 - M79.12) Prior TPIs with history of benefit for myalgia pain and headache pain. 01/25/2024 Myalgia of auxiliary muscles, head and neck (ICD-10 - M79.12) Prior TPIs with history of benefit for myalgia pain and headache pain. 03/15/2024 Myalgia of auxiliary muscles, head and neck (ICD-10 - M79.12) Prior TPIs with history of benefit for myalgia pain and headache pain. 03/15/2024 Headache, unspecified (ICD-10 - R51.9) TPIs with history of benefit for headache symptoms. Patient has reported of prior Botox injections by Dr. Stone. Side effects of weakness has been of concern to patient. 01/25/2024 Headache, unspecified (ICD-10 - R51.9) TPIs with history of benefit for headache symptoms. Patient has reported of prior Botox injections by Dr. Stone. Side effects of weakness has been of concern to patient. 01/19/2024 Headache, unspecified (ICD-10 - R51.9) TPIs with history of benefit for headache symptoms. Patient denied headache symptoms on 08/30/23 and 09/15/23 and 09/29/23. Patient reports prior Botox injections by Dr. Stone with history of benefit for headaches, however, neck weakness and difficulty holding head upright previously reported by patient in regards to the neck injection aspect of the Botox injections. Previously recommended patient discuss this with Dr. Stone. Patient reports that his next visit with her is upcoming. 11/24/2023 Headache, unspecified (ICD-10 - R51.9) TPIs with history of benefit for headache symptoms. Patient denied headache symptoms on 08/30/23 and 09/15/23 and 09/29/23. Patient reports prior Botox injections by Dr. Stone with history of benefit for headaches, however, neck weakness and difficulty holding head upright previously reported by patient in regards to the neck injection aspect of the Botox injections. Previously recommended patient discuss this with Dr. Stone. Patient reports that his next visit with her is upcoming. 09/15/2023 Other chronic pain (ICD-10 - G89.29) Patient reports that taking his pain medication allows him to be more active. Plan to continue oral opioid medication management. 09/29/2023 Other chronic pain (ICD-10 - G89.29) Patient reports that taking his pain medication allows him to be more active. Plan to continue oral opioid medication management. 08/30/2023 Other chronic pain (ICD-10 - G89.29) Patient reports that taking his pain medication allows him to be more active. Plan to continue oral opioid medication management. 09/29/2023 Vertebrogenic low back pain (ICD-10 - M54.51) Chronic lumbar spine pain. 11/24/2023 Obstructive sleep apnea (adult) (pediatric) (ICD-10 - G47.33) Patient with history of untreated sleep apnea (inability to tolerate CPAP). Updated sleep study completed on 11/04/22 and a subsequent ENT referral was initiated. Possible additional treatment options declined by patient (he did not go to see Dr. Aranda, ENT physician). Plan to continue to restrict opioid use in relation to sleep for safety concerns. 09/15/2023 Vertebrogenic low back pain (ICD-10 - M54.51) Chronic lumbar spine pain. 08/30/2023 Vertebrogenic low back pain (ICD-10 - M54.51) Chronic lumbar spine pain. 01/19/2024 Obstructive sleep apnea (adult) (pediatric) (ICD-10 - G47.33) Patient with history of untreated sleep apnea (history of inability to tolerate CPAP). Updated sleep study completed on 11/04/22 (revealing mild sleep apnea and more concerning nocturnal hypoxemia) and a subsequent ENT referral was initiated. Possible additional treatment options declined by patient (he did not go to see Dr. Aranda, ENT physician). Plan to continue to restrict opioid use in relation to sleep for safety concerns. 01/25/2024 Obstructive sleep apnea (adult) (pediatric) (ICD-10 - G47.33) Patient with history of untreated sleep apnea (history of inability to tolerate CPAP). Updated sleep study completed on 11/04/22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
--- OUTSIDE RECORDS SUMMARY | 2024-05-07 09:47 | XMS_ITS ---
Author Name Unknown Organization [facility] Address [address] [place], [place] [id number] Care Team Providers Care Maintenance Assistant Name Role Phone [facility] Primary Care Provider Vibha vailabailey Pineda MD, Michael Unavailable [phone] [facility] [place] Unavailable Unavailable REASON FOR VISIT [facility] Rx MEDICATIONS Medication SIG (Take, Route, Frequency, Duration) Notes Start Date End Date Status acetaminophen-oxycodo ne 325 mg-5 mg 1-2 tabs orally Q4-6H prn pain (max 6/day; hold within 4H of planned sleep) for 28 days ICD-10: G89.29, (auth as per 01/19/24 visit) 02/15/2024 Active Encounters Encounter Location Date Provider Diagnosis [facility] [place] [address] [place], [place] [id number] 02/15/2024 Michael Pineda PLAN OF TREATMENT Medication Medication Name Sig Start Date Stop Date Notes acetaminophen-oxycodone 325 mg-5 mg 1-2 tabs orally Q4-6H prn pain (max 6/day; hold within 4H of planned sleep) for 28 days 02/15/2024 ICD-10: G89.29, (auth as per 01/19/24 visit) Next Appt Details Provider Name:Michael Pierre son, 05/10/2024 10:30:00 AM, [address] [place], [place], [phone],
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
--- OUTSIDE RECORDS SUMMARY | 2024-05-07 09:47 | XMS_ITS ---
Author Name Unknown Organization [facility] Address [address] [place], [place] [id number] Care Team Providers Care Battery Container Tester Aluminum Name Role Phone [facility] Primary Care Provider Vibha vailable Miriam MCINTOSH, Michael Unavailable [phone] [facility] [place] Unavailable Unavailable REASON FOR VISIT [facility] Rx MEDICATIONS Medication SIG (Take, Route, Frequency, Duration) Notes Start Date End Date Status acetaminophen-oxycodo ne 325 mg-5 mg 1-2 tabs orally Q4-6H prn pain (max 6/day; hold within 4H of planned sleep) for 28 days ICD-10: G89.29, (auth as per 03/15/24 visit) 04/12/2024 Active Encounters Encounter Location Date Provider Diagnosis [facility] [address] [place], [place] [id number] 04/12/2024 Michael Pineda PLAN OF TREATMENT Medication Medication Name Sig Start Date Stop Date Notes acetaminophen-oxycodone 325 mg-5 mg 1-2 tabs orally Q4-6H prn pain (max 6/day; hold within 4H of planned sleep) for 28 days 04/12/2024 ICD-10: G89.29, (auth as per 03/15/24 visit) Next Appt Details Provider Name:Michael Pierre son, 05/10/2024 10:30:00 AM, [address] [place], [place], [phone],
--- OUTSIDE RECORDS SUMMARY | 2024-05-08 12:50 | XMS_ITS ---
Author Name Unknown Organization [facility] Address [address] [facility] [place] [address] Care Team Providers Care Surgical Garment Assembler Name Role Phone [facility] Michael BROWNING Primary Care Provider Un available Abner Huffman Unavailable [phone] Allergies Allergen (clinical drug ingredient) Drug/Non Drug [...] 04/23/2024 Encounters Encounter Location Date Provider Diagnosis [facility] [address] [place] [id number] 04/23/2024 Abner Huffman Postoperative state Z98.890 Assessments Encounter Date Diagnosis (ICD Code) Assessment Notes Treat ment Notes Treatment Clinical Notes 04/23/2024 Postoperative state (ICD-10 - Z98.890) Plan Of Treatment Next Appt Details Provider Name:Abner Huffman , 05/28/2024 10:00:00 AM, [address] [place], [phone], Provider Name:Chris Rodrigues, 09/18/2024 01:00:00 PM, [address] [place], [address], Progress Notes * Marcos MORAN WDOB:1969 (53 yo M)Acc No.[id number]:04/23/2024 Patient:?Marcos MORAN W Provider:?Abner Huffman MD :1970???Age:53 Y???Sex:Male Fabian e:04/23/2024 Address:[address] [place] [address] 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
--- OUTSIDE RECORDS SUMMARY | 2024-05-08 12:50 | XMS_ITS ---
Author Name Unknown Organization [facility] Address [address] [place] [address] Care Team Providers Care Concert Singer Name Role Phone [facility] Michael BROWNING Primary Care Provider Un available Abner Huffman Unavailable [phone] Chris Rodrigues Unavailable [phone] Allergies Allergen (clinical drug ingredient) Drug/Non Drug [...] 03/27/2024 Encounters Encounter Location Date Provider Diagnosis [facility] [place] [address] [place] [phone] 03/27/2024 Chris Rodrigues Cervicalgia M54.2 ; Cervical [...] Name:Abner Huffman , 05/28/2024 10:00:00 AM, [address] [place], [address], Provider Name:Chris Rodrigues, 09/18/2024 01:00:00 PM, [address] [place], [address], Progress Notes * Marcos MORAN WDOB:1969 (53 yo M)Acc No.[id number]:03/27/2024 Progress Notes Patient:?Marcos MORAN W Provider:?Chris Rodrigues MD :1970???Age:53 Y???Sex:Male Fabian e:03/27/2024 Address:[address] [place] [address] [address] [phone] Pcp:Michael Marlow, DO Check Out:01:24 PM INSPECTOR CONVEYOR LINE Subjective: * Chief Complaints: * ???1. F/U [...] he has an appointment scheduled with a News Director on May 14 and an appointment with [...] call * Billing Information: * Visit Code:? 77692 Office Visit, Est Pt., Level 3. * Procedure Codes:? 3074F SYST BP LT 130 MM HG. 3078F DIAST BP < 80 MM HG. Care Plan Details* * Sign off status: Completed true * Provider:?Chris Rodrigues MD Date:?2023 Generated for Tiara ferris/Leah/eTransmitting on:?05/08/2024 12:50 PM CDT History and Physical Notes * Examination [...]
--- OUTSIDE RECORDS SUMMARY | 2024-05-08 12:51 | XMS_ITS | Patient Health Record ---
Author Name Unknown Organization [facility] Address [address], [place] [id number] Care Team Providers Care Call Center Associate Name Role Phone [facility] Primary Care Provider Vibha Michael Rodriguez MD Unavailable [phone] [place], [employer] Unavailable Unavailable Quynh Stovall Unavailable [phone] ALLERGIES Allergen (clinical drug ingredient) Drug/Non Drug [...] Name Carl millan Referring Provider Last Name [place] Referred Organization [facility] Referred Provider Michael Pineda Referred Address [address] [place], [id number], Referred Provider Specialty Pain Managem ent Referral Priority Routine Diagnosis 1 Vertebrogenic low ba ck pain (M54.51) Referring Provider First Name Carl Macu yana Referring Provider Last Name [place] Referred Organization [facility] Referred Provider Michael Pineda Referred Address [address] [place], [place], Referred Provider Specialty Pain Managem ent Referral [...] elsewhere classified (M46.1) Active confirmed Solitary sacroiliitis (317349877) Problem Spondylosis without myelopathy or radiculopathy, lumbar region (M47.816) Active confirmed Lumbosacral spondylosis without myelopathy (23802359) 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) Active confirmed High risk drug monitoring status (438239632) Problem Other specified anxiety disorders (F41.8) Active confirmed Anxiety disorde r (744742621) Problem Obstructive sleep apnea (adult) (pediatric) (G47.33) Active confirmed Obstructive sle ep apnea syndrome (99802713) Problem Other chronic pain (G89.29) Active confirmed Chronic pain (85717816) Problem Chronic pain syndrome (G89.4) Active confirmed Chronic negra n syndrome (518292024) Problem Intervertebral disc disorders with radiculopathy, lumbar region (M51.16) Active confirmed Radiculopathy d ue to lumbar intervertebral disc disorder (180747683719949) Problem Other senior care (current) drug therapy (Z79.899) Active confirmed Long-term current use of drug therapy (039934194) Problem Myalgia of auxiliary muscles, head and neck (M79.12) Active confirmed Myalgia (01127558) Problem Myalgia, other site (M79.18) Active confirmed Muscle pain (18826145) Problem Headache, unspecified (R51.9) Active confirmed Headache (47044301) Problem Vertebrogenic low back pain (M54.51) Active confirmed Pain in lumbar spine (039820738) VITAL SIGNS Temperature 97.8 degrees Fahrenheit 03/15/2024 Blood pressure diastolic 106 mm Hg 03/15/2024 Oximetry 95 % 03/15/2024 Height 63 in 03/15/2024 Blood pressure systolic 147 mm Hg 03/15/2024 Weight 147 lbs 03/15/2024 BMI 26.04 kg/m2 03/15/2024 Encounters Encounter Location Date Provider Diagnosis [facility] [address] [place], [place] [id number] 05/19/2023 Michael Pineda [facility] [address] [place], [place] [id number] 06/16/2023 Quynh Jiang Other chronic pain G89.29 ; Vertebrogenic low back pain M54.51 ; Myalgia, other site M79.18 and Obstructive sleep apnea (adult) (pediatric) G47.33 [facility] [address] [place], [place] [id number] 06/21/2023 Michael Pineda Other chronic pain G89.29 ; Myalgia of auxiliary muscles, head and neck M79.12 ; Vertebrogenic low back pain M54.51 and Obstructive sleep apnea (adult) (pediatric) G47.33 [facility] [address] [place], [place] [id number] 07/14/2023 Michael Pineda [facility] [address] [place], [place] [id number] 08/16/2023 Michael Pineda [facility] [address] [place], [place] [id number] 08/30/2023 Michael Pineda Spondylosis without myelopathy or radiculopathy, lumbar region M47.816 ; Other specified anxiety disorders F41.8 ; Myalgia of auxiliary muscles, head and neck M79.12 ; Headache, unspecified R51.9 ; Other chronic pain G89.29 ; Vertebrogenic low back pain M54.51 and Obstructive sleep apnea (adult) (pediatric) G47.33 [facility] [address] [place], [place] [id number] 09/15/2023 Michael Pineda Spondylosis without myelopathy or radiculopathy, lumbar region M47.816 ; Other specified anxiety disorders F41.8 ; Myalgia of auxiliary muscles, head and neck M79.12 ; Headache, unspecified R51.9 ; Other chronic pain G89.29 ; Vertebrogenic low back pain M54.51 and Obstructive sleep apnea (adult) (pediatric) G47.33 [facility] [address] [place], [place] [id number] 09/29/2023 Michael Pineda Spondylosis without myelopathy or radiculopathy, lumbar region M47.816 ; Other specified anxiety disorders F41.8 ; Myalgia of auxiliary muscles, head and neck M79.12 ; Headache, unspecified R51.9 ; Other chronic pain G89.29 ; Vertebrogenic low back pain M54.51 and Obstructive sleep apnea (adult) (pediatric) G47.33 [facility] [address] [place] [place] [address] 10/03/2023 Michael Pineda Spondylosis without myelopathy or radiculopathy, lumbar region M47.816 and Other specified anxiety disorders F41.8 [facility] [address] [place], [place] [id number] 10/04/2023 Michael Pineda Spondylosis without myelopathy or radiculopathy, lumbar region M47.816 and Other specified anxiety disorders F41.8 [facility] [address] [place], [place] [id number] 10/10/2023 Michael Pineda [facility] [address] [place] [address] 10/17/2023 Michael Pineda Spondylosis without myelopathy or radiculopathy, lumbar region M47.816 and Other specified anxiety disorders F41.8 [facility] [address] [place], [place] [id number] 10/31/2023 Michael Pineda [facility] [address] [place], [place] [id number] 11/24/2023 Michael Pineda Other chronic pain G89.29 ; Vertebrogenic low back pain M54.51 ; Spondylosis without myelopathy or radiculopathy, lumbar region M47.816 ; Myalgia of auxiliary muscles, head and neck M79.12 ; Headache, unspecified R51.9 and Obstructive sleep apnea (adult) (pediatric) G47.33 [facility] [address] [place], [place] [id number] 12/22/2023 Michael Pineda [facility] [address] [place], [place] [id number] 01/19/2024 Quynh Jiang Other chronic pain G89.29 ; Vertebrogenic low back pain M54.51 ; Spondylosis without myelopathy or radiculopathy, lumbar region M47.816 ; Myalgia of auxiliary muscles, head and neck M79.12 ; Headache, unspecified R51.9 and Obstructive sleep apnea (adult) (pediatric) G47.33 [facility] [address] [place], [place] [id number] 01/25/2024 Michael Pineda Other chronic pain G89.29 ; Vertebrogenic low back pain M54.51 ; Spondylosis without myelopathy or radiculopathy, lumbar region M47.816 ; Myalgia of auxiliary muscles, head and neck M79.12 ; Headache, unspecified R51.9 and Obstructive sleep apnea (adult) (pediatric) G47.33 [facility] [address] [place], [place] [id number] 02/15/2024 Michael Pineda [facility] [address] [place], [place] [id number] 03/15/2024 Quynh Jiang Other chronic pain G89.29 ; Vertebrogenic low back pain M54.51 ; Spondylosis without myelopathy or radiculopathy, lumbar region M47.816 ; Myalgia of auxiliary muscles, head and neck M79.12 ; Headache, unspecified R51.9 ; Obstructive sleep apnea (adult) (pediatric) G47.33 and [facility] (current) use of opiate analgesic Z79.891 [facility] [address] [place], [place] [id number] 04/12/2024 Michael Pineda ASSESSMENTS Encounter Date Diagnosis Assessment Notes Treatment Notes Treatment Clinical Notes 06/16/2023 Other chronic pain (ICD-10 - G89.29) Patient reports that taking his pain medication allows him to continue 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 Plan to continue oral opioid medication management. 06/16/2023 Vertebrogenic low back pain (ICD-10 - M54.51) Chronic lumbar spine pain. 06/21/2023 Other chronic pain (ICD-10 - G89.29) Patient reports that taking his pain medication allows him to continue 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 Plan to continue oral opioid medication [...] reported by patient. After Rx visit, recommended olive pitter to set up OV for further evaluation [...] working in the [employer] in the [facility]. Treatment has started with follow up CT [...] working in the [employer] in the [facility]. Patient reported that treatment was started with [...] relation to sleep for safety concerns. 03/15/2024 [facility] (current) use of opiate analgesic (ICD-10 - [...] safety concerns. 08/30/2023 Other Due to the [facility] inability to store more than 1 month of opioid prescriptions at a time, remaining eRx(s) will be sent as indicated. Recommended patient discuss with his PCP at the [facility] in regards to his request for imaging of the entire spine in relation to his quest for a disability determination. 01/25/2024 Other Due to the [facility] inability to store more than 1 [...] he no longer has access to his [facility] PCP, Dr. Shaver, and he is still seen by a NURSE SUPERVISOR. 06/16/2023 Other [facility] [...] 28 days. 11/24/2023 Other Due to the [facility] inability to store more than 1 month of opioid prescriptions at a time, remaining eRx will be sent in 28 days. 09/15/2023 Other Due to the [facility] inability to store more than 1 month of opioid prescriptions at a time, remaining eRx will be sent in 30 days. 10/04/2023 Other 06/21/2023 Other Due to the [facility] inability to store more than 1 month of opioid prescriptions at a time, remaining eRx(s) will be sent in 30 and 60 days, as indicated. 09/29/2023 Other Due to the [facility] inability to store more than 1 month of opioid prescriptions at a time, remaining eRx will be sent in 30 days. PLAN OF TREATMENT Next Appt Details Provider Name:Michael Pierre son, 05/10/2024 10:30:00 AM, [address] [place] [address], [phone], Insurance Providers Payer Name Payer Address Payer Phone Subscriber Number Group Number Insured Name Patient Relationship to Insured Coverage Start Date Coverage End Date [employer] [address] [place] [id number] Marcos Moran Self - patient is the [...] Surgery Date(Month/Year) ORIF right femur, performed in [place], [place], 1990 Removal of hardware, right femur, perfor med in [place], [place], 1991 Removal of foreign body (faustino nail), right knee, 1995 Lung biopsy, performed at [facility] by Dr. Fabian crandall, 04/12/23 Tendon and muscle repair, [facility] hip, performed at [facility] by Dr. Huffman, 02/06/24 Hospitalization History Reason Date(Month/Year) CVA, treated at [facility] in [place], [place]
--- OUTSIDE RECORDS SUMMARY | 2024-05-08 12:51 | XMS_ITS ---
Author Name Unknown Organization 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) Active confirmed Problem [id number] Nontraumatic complete tear of left rotator cuff [...] 03/26/2024 Encounters Encounter Location Date Provider Diagnosis [facility] [address] [place] [id number] 03/26/2024 Abner Huffman Nontraumatic complet e tear [...] Plan Of Treatment Next Appt Details Provider Name:Abenr Huffman , 05/28/2024 10:00:00 AM, [address] [place], [address], Provider Name:Chris Rodrigues, 09/18/2024 01:00:00 PM, [address] [place], [address], Medications Administered Medication Instructions Date of Administration [...] * Marcos MORAN WDOB:1969 (53 yo M)Acc No.[id number]:03/26/2024 Patient:?Marcos MORAN Provider:?Abner Huffman MD :1970???Age:53 Y???Sex:Male Fabian e:03/26/2024 Address:[address] [place], [place] [id number] Pcp:Michael Marlow, DO Check In:09:43 AM CSTCheck O 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 74548 Office Visit, Est Pt., Level 3. * Procedure Codes:? 76944 DRAIN/INJECT, JOINT/BURSA. DRAIN/INJECT, JOINT/BURSA. Bupivicaine. S0020 INJ BUPIVICAINE HYDROCHLORID 30 ML. Lidocaine/Xylocaine 1%. J1010 Injection, methylprednisolone acetate, 1 mg. Units: 40.00. * Sign off status: Completed true * Provider:?Abner Huffman MD Date:?03/26 Generated for Tiara ferris/Leah/eTransmitting on:?05/08/2024 12:50 PM CDT
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
--- OUTSIDE RECORDS SUMMARY | 2024-05-08 12:51 | XMS_ITS ---
Author Name Unknown Organization [facility] Address [address] [place], [place] [phone] Care Team Providers Care Personal Injury Paralegal Name Role Phone [facility] Primary Care Provider Vibha vailable Miriam MCINTOSH, Michael Unavailable [phone] [place] [place] Unavailable Unavailable REASON FOR VISIT [facility] MEDICATIONS Medication SIG (Take, Route, Frequency, Duration) Notes Start Date End Date Status acetaminophen-oxycodo ne 325 mg-5 mg 1-2 tabs orally Q4-6H prn pain (max 6/day; hold within 4H of planned sleep) for 28 days ICD-10: G89.29, (auth as per 03/15/24 visit) 04/12/2024 Active Encounters Encounter Location Date Provider Diagnosis [facility] [address] [place], [place] [id number] 04/12/2024 Michael Pineda PLAN OF TREATMENT Medication Medication Name Sig Start Date Stop Date Notes acetaminophen-oxycodone 325 mg-5 mg 1-2 tabs orally Q4-6H prn pain (max 6/day; hold within 4H of planned sleep) for 28 days 04/12/2024 ICD-10: G89.29, (auth as per 03/15/24 visit) Next Appt Details Provider Name:Michael Pierre son, 05/10/2024 10:30:00 AM, [address] [place], [place], [phone],
--- OUTSIDE RECORDS SUMMARY | 2024-05-08 12:51 | XMS_ITS ---
Author Name Unknown Organization [facility] Address [address] [place], [place] [phone] Care Team Providers Care Grocery Store Manager Name Role Phone [facility] Primary Care Provider Vibha vailabailey Pineda MD, Michael Unavailable [phone] [place] [place] Unavailable Unavailable REASON FOR VISIT [facility] Rx MEDICATIONS Medication SIG (Take, Route, Frequency, Duration) Notes Start Date End Date Status acetaminophen-oxycodo ne 325 mg-5 mg 1-2 tabs orally Q4-6H prn pain (max 6/day; hold within 4H of planned sleep) for 28 days ICD-10: G89.29, (auth as per 01/19/24 visit) 02/15/2024 Active Encounters Encounter Location Date Provider Diagnosis [facility] [address] [place], [place] [phone] 02/15/2024 Michael Pineda PLAN OF TREATMENT Medication Medication Name Sig Start Date Stop Date Notes acetaminophen-oxycodone 325 mg-5 mg 1-2 tabs orally Q4-6H prn pain (max 6/day; hold within 4H of planned sleep) for 28 days 02/15/2024 ICD-10: G89.29, (auth as per 01/19/24 visit) Next Appt Details Provider Name:Michael Pierre son, 05/10/2024 10:30:00 AM, [address] [place], [place], [id number],
--- OUTSIDE RECORDS SUMMARY | 2024-05-08 12:51 | XMS_ITS | Patient Health Record ---
Author Name Unknown Organization [facility] Address [address] [place] [address] MELISA JACQUELYN, TERRY [address] Care Team Providers Care Polarity Tester Name Role Phone [facility] Michael BROWNING Primary Care Provider Un available Abner Huffman Unavailable [phone] Chris Rodrigues Unavailable [phone] Tavo Griggs Unavailable [phone] Allergies Allergen (clinical drug ingredient) Drug/Non Drug Allergy documented on EMR Reaction Allergy Type Onset Date Status diphenhydramine Benadryl Unknown Drug Allergy A ctive codeine Codeine Unknown Drug Allergy Active Results Component Value Reference Range Notes MRI LE JT w/o Cont [id number] Reviewed date:03/20/2024 08:02:51 AM Interpretation: Performing Lab: Notes/Report: lus=[id number]&org=iSite tct=[id number] &o rg=iSite Basic Metabolic Panel (BMP) 95501 Reviewed date:02/09/2024 06:21:59 PM Interpretation: Performing Lab: Notes/Report: Diagnosis Description: Strain of muscle, fascia and tendon of right hip, initial encounter Sodium 140 136-145 MMOL/L Potassium 4.7 3.5-5.1 MMOL/L Chloride 107 98-107 MMOL/L CO2 27.9 20.0-31.0 MMOL/L Glucose Serum 108 71-110 MG/DL Testing perfor med at [facility], [address] [place] [address] [place] [address]. CLIA ID#: [id number] BUN 25 7-21 MG/DL Creat .93 .57-1.17 MG/DL U-gimxlv-e-benzoquinon e imine (NAPQI) is a metabolite of acetaminophen, NAPQI concentrations of apparoximately 10 mg/L correlation to toxic levels of acetaminophen demonstrates a greater than or equil to 10% change in results. NAPQI concentrations greater than this may lead to falsely depressed results for patient samples. Use of this assay is not recommended for patients undergoing treatment with phenindione, due to the potential for falsely depressed results. GFR 97.6 Calculation per formed from GFR [...] 8.7-10.4 MG/DL Osmo Serum,Calculated 295 280-300 MOSM/KG CBC Reflex Man Diff 93895, 8 9935 Reviewed date:02/09/2024 06:21:59 PM Interpretation: Performing Lab: [...] 9.5 9.2-12.0 FL Review Auto Diff Conf Chest PA/Lat-70992 Reviewed date:02/09/2024 06:21:59 PM Interpretation: Performing Lab: Notes/Report: kpr=[id number]&org=iSite cbr=[id number] &o rg=iSite zzzMRI Outside CD (Not yet r eviewed by provider) Interpretation: Performing Lab: Notes/Report: rio=[id number]&org=iSite fsv=[id number] &o rg=iSite zzzMRI Outside CD (Not yet r eviewed by provider) Interpretation: Performing Lab: Notes/Report: nfk=[id number]&org=iSite mlz=[id number] &o rg=iSite XR Outside CD Reviewed date:01/05/2024 08:57:04 AM Interpretation: Performing Lab: Notes/Report: dbl=[id number]&org=iSite vzy=[id number] &o rg=iSite XR Outside CD Reviewed date:03/20/2024 08:01:35 AM Interpretation: Performing Lab: Notes/Report: jox=[id number]&org=iSite zhq=[id number] &o rg=iSite MRI LE JT w/o Cont [id number] Reviewed date:03/20/2024 08:00:35 AM Interpretation: Performing Lab: Notes/Report: See Below For Report MRI LE JT w/o Cont RT Diagnosis Description: Pain in right hip Read See Below For Report Schedule Confirmation Reviewed date:05/03/2024 03:12:27 PM Interpretation: Performing Lab: Notes/Report: MRI LE JT w/o Cont RT Schedule Confirmation Reviewed date:05/03/2024 03:12:27 PM Interpretation: Performing Lab: Notes/Report: MRI LE JT w/o Cont RT Culture Body Fluid 75614 Reviewed date:02/13/2024 08:18:20 AM Interpretation: Performing Lab: Notes/Report: Culture Body Fluid MARCOS Estevez Culture Body Fluid t: Culture Body Fluid Culture Body Fluid [facility] [id number] Culture Body Fluid n: Culture Body Fluid [...] Body Fluid No growth at 72 hours Culture Fungus 94975 Reviewed date:03/19/2024 07:42:53 PM Interpretation: Performing Lab: Notes/Report: Final SEE NOTE Culture negative for Fungi Performed By: [facility] [address] [place] [address] Gasoline Engine Assembler: Sergio Key MD, PhD CLIA Number: [id number] WBC Auto Diff--49931 Reviewed date:02/09/2024 06:21:59 PM Interpretation: Performing Lab: Notes/Report: Added by Discern Rules Neutro Auto% 70.0 40.0-70.0 % Lymph Auto% 17.4 22.0-44.0 % Monona Auto% 10.4 3.0-7.0 % Eos Auto% 1.4 2.0-4.0 % Baso Auto% 0.4 0.0-1.0 % NRBC% .00 .00-.20 /100 intact WBC's Neutro Abs 3.51 .80-7.70 Absolute Neutrophil Count 3510 Lymph Abs .87 .10-4.10 Monona Abs .52 .20-1.00 Eos Abs .07 .00-.40 Baso Abs .02 .00-.20 NRBC# .00 .00-.20 Imm Gran Abs .02 .00-.10 Imm Gran% .4 .0-.4 % Chest PA/Lat-04874 Reviewed date:02/09/2024 06:21:59 PM Interpretation: Performing Lab: Notes/Report: See Below For Report Chest PA/Lat Diagnosis Description: Strain of muscle, fascia and tendon of right hip, initial encounter Read See Below For Report Reason For Referral Reason back pain Diagnosis 1 Back pain (M54.9) Referring Provider First Name Michael Referring Provider Last Name [facility] Referring Provider Speciality Internal M edicine Referred Organization [facility] [place] Referred Provider Chris Rodrigues Referred Address [address] [facility] [facility] ,[place],[address], Referral Priority Routine Reason Eval and treat right hip pain and swelling Diagnosis 1 Swelling (R60.9) Diagnosis 2 Right hip pain (M25. 551) Referral Organization [facility] [place] Referring Provider First Name Chris Referring Provider Last Name Ravi Referring Provider Speciality Neurosurge ry Referred Organization [facility] Referred Provider Tavo Griggs Referred Address [address],[place] [facility],[place],[address],[place] Referred Provider Specialty Orthopedic S urgery Referral Priority Routine Reason Neck pain Diagnosis 1 Neck pain (M54.2) Referring Provider First Name Michael Referring Provider Last Name [facility] Referring Provider Speciality Internal M edicine Referred Organization [facility] [place] Referred Provider Chris Rodrigues Referred Address [address],[place],[address],[place] Referral Priority Routine Reason Please provide patie nt with walker S/P RIGHT gluteus medius tear of right hip Diagnosis 1 Strain of muscle, fa scia and tendon of right hip, initial encounter (S76.011A) Referral Organization [facility] Referring Provider First Name Abner Referring Provider Last Name Armida Referring Provider Speciality Orthopedic Surgery Referred Provider Cesario [facility] Referral Priority Routine Medications Medication SIG (Take, [...] W/U Status Risk Notes Problem Lumbar spondylosis (350242998) Lumbar spondylosis (M47.816) Active confirmed Problem Scoliosis (212170427) Scoliosis (M41.9) Active confirmed Problem Acquired spondylolisthesis (427270341) Spondylolisthesis at L5-S1 level (M43.17) Active confirmed Problem [id number] 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) Active confirmed Problem 5869127841699087 Nontraumatic complete tear of left rotator cuff (M75.122) Active confirmed Problem Solitary pulmonary nodule (117636466) Incidental lung nodule, greater than or equal [...] 04/23/2024 Encounters Encounter Location Date Provider Diagnosis [facility] [address] [address] 12/20/2023 Chris Rodrigues Spondylolisthesis at L5-S1 level M43.17 ; Lumbar spondylosis M47.816 ; Scoliosis M41.9 ; Right hip pain M25.551 ; Cervicalgia M54.2 and Lumbar radiculopathy M54.16 [facility] [address] [place] [address] 01/06/2024 Tavo Griggs Hip pain, right M25. 551 [facility] [place] [address] [place] [address] 01/17/2024 Chris Rodrigues Cervical radiculopat hy M54.12 ; Cervical spinal stenosis M48.02 ; Neck pain M54.2 ; Lumbar radiculopathy M54.16 and Spondylolisthesis at L5-S1 level M43.17 [facility] [address] [place] [address] 02/03/2024 Tavo Griggs Abscess of hip, righ t L02.415 [facility] [address] [place] [address] 02/06/2024 Abner Huffman Tear of right gluteu s medius tendon, initial encounter S76.011A ; Abscess of hip, right L02.415 and Exposure to other specified factors, sequela X58.XXXS [facility] [address] [place] [address] 02/09/2024 Abner Huffman [facility] [address] [place] [address] 02/22/2024 Abner Huffman Postoperative state Z98.890 [facility] [address] [place] [address] 03/26/2024 Abner Huffman Nontraumatic complet e tear of right rotator cuff M75.121 and Nontraumatic complete tear of left rotator cuff M75.122 [facility] [place] [address] [place] [address] 03/27/2024 Chris Ravi Cervicalgia M54.2 ; Cervical radiculopathy M54.12 ; Spondylolisthesis at L5-S1 level M43.17 ; Lumbar radiculopathy M54.16 and Scoliosis M41.9 [facility] [address] [place] [address] 04/23/2024 Abner Huffman Postoperative state Z98.890 [facility] [address] [place] [address] 01/05/2024 Tavo Griggs Hip pain, right M25. 551 [facility] [address] [place] [address] 01/30/2024 Tavo Griggs [facility] [address] [place] [address] 02/06/2024 Tavo Griggs Assessments Encounter Date Diagnosis (ICD Code) Assessment Notes Treatment Notes Treatment Clinical Notes 12/20/2023 Lumbar spondylosis (ICD-10 - M47.816) 12/20/2023 Spondylolisthesis at L5-S1 level (ICD-10 - M43.17) 01/17/2024 Cervical radiculopat hy (ICD-10 - M54.12) 01/06/2024 Hip pain, right (ICD-10 - M25.551) Dividual has right hip pain. I have no x-rays. Apparently [facility] but I do not have access to [...] for, and in the presence of Chris Rodriuges MD. Chris Cm, personally performed the services [...] Test Name Order Date Electrocardiogram 12 Lead Tracing-[id number] 02/06/2024 zzzMRI Outside CD 10/04/2023 zzzMRI Outside CD 10/12/2023 IH Hip 2-3 View Uni Right - [id number] 2023 Next Appt Details Provider Name:Abner Bell Armida , 05/28/2024 10:00:00 AM, [address], [place], [address], Provider Name:Chris Ravi, 09/18/2024 01:00:00 PM, [address], [place], [place], [address], Insurance Providers Payer Name Payer Address Payer Phone Subscriber Number Group Number Insured Name Patient Relationship to Insured Coverage Start Date Coverage End Date [employer] [address] [place] [address] [id number] Marcos Moran Self - patient is the [...]
[2024-05-08 13:07] VITALS: BP 124/78; PULSE 92; RESP 16; TEMP 36.6; O2SAT 95
[2024-05-08] MEDS: cosyntropin 0.25 mg SDV IVP (13:31)
[2024-05-08 14:11] LABS: Cosyntropin Baseline 1.83 mcg/dL
[2024-05-08 14:47] LABS: Cosyntropin 30 Minute 21.69 mcg/dL
[2024-05-08 14:50] VITALS: BP 146/88; PULSE 84; RESP 16; TEMP 36.6; O2SAT 98
[2024-05-08 15:19] LABS: Cosyntropin 1 Hour 24.75 mcg/dL
== END 2024-05-14 23:59 | disposition home or self-care (01) ==
LOC: ONCMED 12:49
PROVIDERS: PCP Emergency Medicine Emergency Medical Services; Visit Provider Internal Medicine
DX: Z79.899 Other long term (current) drug therapy (principal); E27.40 Unspecified adrenocortical insufficiency
CPT/HCPCS: 36415; 82533; J0834

== ENCOUNTER → 2024-06-19 14:24 | Outpatient (BNVA) | payer OTHER, SELFPAY | PROVIDERS: PCP Emergency Medicine Emergency Medical Services; Visit Provider Student in an Organized Health Care Education/Training Program | DX: B38.9 Coccidioidomycosis, unspecified (principal); G47.33 Obstructive sleep apnea (adult) (pediatric); R53.83 Other fatigue; Q21.12 Patent foramen ovale | CPT/HCPCS: 86635; 99215 ==

== ENCOUNTER 2024-07-17 15:26 | Outpatient (CLI) | payer OTHER, SELFPAY ==
--- NOTE | 2024-07-17 15:30 | CTR_ITS ---
PROCEDURE INFORMATION: Exam: CT Chest Without Contrast; Diagnostic Exam date and time: 07/17/2024 3:32 PM Age: 54 years old Clinical indication: Condition or disease; Other: Coccidioides; Additional info: Follow up coccidioides, follow up pulmonary coccidioides, 6 months post treatment TECHNIQUE: Imaging protocol: Diagnostic computed tomography of the chest without contrast. Radiation optimization: All CT scans at this facility use at least one of these dose optimization techniques: automated exposure control; mA and/or kV adjustment per patient size (includes targeted exams where dose is matched to clinical indication); or iterative reconstruction. COMPARISON: CT chest con [id number] 11/30/2023 6:53 AM RADIATION DOSE METRICS: Total DLP (mGy-cm): 398.8 FINDINGS: Lungs: Right lower lobe mass measures 3 x 2 cm in size. There is minimal adjacent airspace disease with adjacent daughter nodules. When directly compared to prior exam, there does not appear to be a significant interval change. Left upper lobe nodule measures 12 x 7 mm in size (previously 14 x 9 mm). No cavitation noted. No new nodules are appreciated. No consolidated infiltrates are noted. Pleural spaces: Unremarkable. No pneumothorax. No pleural effusion. Heart: Unremarkable. No cardiomegaly. No pericardial effusion. Lymph nodes: There are a few small mediastinal lymph nodes. No enlarged nodes are appreciated. Vasculature: The thoracic aorta is normal in caliber. There is calcified plaque involving the aorta. No calcified plaque is noted involving the coronary vessels. Bones/joints: Unremarkable. No acute fracture. Soft tissues: Unremarkable. CT/CT chest con [id number] IMPRESSION: 1. Left upper lobe nodule slightly smaller on today's exam. No definite cavitation appreciated. The right lower lobe nodular opacity does not appear to be significantly changed when directly compared to prior exam.
== END 2024-07-17 15:27 | disposition home or self-care (01) ==
LOC: RAD 15:27
PROVIDERS: Visit Provider Student in an Organized Health Care Education/Training Program
DX: B38.9 Coccidioidomycosis, unspecified (principal); R91.8 Other nonspecific abnormal finding of lung field
CPT/HCPCS: 71250

== ENCOUNTER → 2024-08-03 07:45 | Outpatient (BNVA) | payer OTHER, SELFPAY | PROVIDERS: Visit Provider Specialist | DX: G43.711 Chronic migraine without aura, intractable, with status migrainosus (principal) | CPT/HCPCS: 64615; J0585 ==

== ENCOUNTER → 2024-09-11 12:50 | Outpatient (BNVA) | payer OTHER, SELFPAY | PROVIDERS: Visit Provider Student in an Organized Health Care Education/Training Program | DX: B38.9 Coccidioidomycosis, unspecified (principal); R53.83 Other fatigue; Q21.12 Patent foramen ovale | CPT/HCPCS: 99213 ==

== ENCOUNTER → 2024-11-02 07:48 | Outpatient (BNVA) | payer OTHER, SELFPAY | PROVIDERS: Visit Provider Specialist | DX: G43.711 Chronic migraine without aura, intractable, with status migrainosus (principal); G56.03 Carpal tunnel syndrome, bilateral upper limbs | CPT/HCPCS: 64615; J0585; J9999 ==

== ENCOUNTER → 2024-11-07 14:56 | Outpatient (BNVA) | payer OTHER, SELFPAY | PROVIDERS: Visit Provider Podiatrist Foot & Ankle Surgery | DX: M79.671 Pain in right foot (principal); M79.672 Pain in left foot; M21.70 Unequal limb length (acquired), unspecified site; G62.9 Polyneuropathy, unspecified; M72.2 Plantar fascial fibromatosis | CPT/HCPCS: 77073; 99203 ==

== ENCOUNTER → 2024-12-19 10:06 | Outpatient (BNVA) | payer OTHER, SELFPAY | PROVIDERS: Visit Provider Podiatrist Foot & Ankle Surgery | DX: G62.9 Polyneuropathy, unspecified (principal); M21.70 Unequal limb length (acquired), unspecified site; M72.2 Plantar fascial fibromatosis | CPT/HCPCS: 99213 ==

== ENCOUNTER → 2025-01-15 13:33 | Outpatient (BNVA) | payer OTHER, SELFPAY | PROVIDERS: Visit Provider Student in an Organized Health Care Education/Training Program | DX: G56.03 Carpal tunnel syndrome, bilateral upper limbs (principal); M25.531 Pain in right wrist; M25.532 Pain in left wrist | CPT/HCPCS: 73110; 99204 ==

== ENCOUNTER → 2025-02-08 14:21 | Outpatient (BNVA) | payer OTHER, SELFPAY | PROVIDERS: Visit Provider Specialist | DX: G43.711 Chronic migraine without aura, intractable, with status migrainosus (principal) | CPT/HCPCS: 64615; J0585; J9999 ==

== ENCOUNTER 2025-02-14 08:39 | Outpatient (CLI) | payer OTHER, SELFPAY ==
--- NOTE | 2025-02-14 09:15 | MR_ITS ---
WS: [email or web address] MRI BRAIN WITHOUT CONTRAST HISTORY: Q21.12 - Patent foramen ovale COMPARISON: None available. TECHNIQUE: Diffusion imaging, multiplanar T1, T2 and FLAIR imaging obtained. No evidence for acute infarct or hemorrhage. Davies-white matter differentiation is normal. Very subtle areas of increased FLAIR signal involving the cortex of the superior LEFT frontal lobe and the paramedian LEFT posterior frontal parietal cortex. No additional signal abnormalities. No lacunar infarcts. Normal hippocampal formations. Ventricles and extra-axial spaces are normal. No inferior displacement of cerebellar tonsils. The sella turcica and pituitary gland are unremarkable. Dural venous sinuses and eyak of Wilson demonstrate no abnormality on this unenhanced studies. Paranasal sinuses: Clear. Mastoid air cells: Normal. Calvarium and scalp: Intact. There is a small cyst associated with the LEFT mandibular condyle. MR/MR head wo con* [id number] IMPRESSION: 1. No diffusion abnormality or acute infarct. 2. Increased T2 signal in the cortex of the superior LEFT frontal lobe in the posterior LEFT paramedian frontal parietal cortex junction. Probably from a larisa or ischemic event or insults. 3. No large territory infarct.
--- NOTE | 2025-02-14 10:00 | MR_ITS ---
WS: [email or web address] MRA ANGIOGRAPHY BIG LAGOON OF WILSON HISTORY: R51.9 - Headache, unspecified COMPARISON: None available. TECHNIQUE: 3-D MR angiography is performed of the ambler of Wilson. All images are reviewed including source images. Dominant and patent distal LEFT vertebral artery. Very tiny caliber distal RIGHT vertebral artery very minimal signal in the distal vertebral artery extending to the basilar artery. Normal basilar artery. Posterior cerebral arteries are both patent. Posterior communicating arteries are both patent. Intracranial portion of the internal carotid arteries are normal course and caliber. No significant atherosclerosis, stenosis or aneurysm identified. Middle and anterior cerebral arteries are both patent with no significant disease. Anterior communicating artery is also normal. MR/MR angio head wo con [id number] IMPRESSION: 1. No cerebral artery aneurysms. 2. Very small caliber, hypoplastic distal RIGHT vertebral artery. 3. Patent and dominant LEFT vertebral artery. 4. Normal intracranial carotid arteries.
== END 2025-02-14 08:40 | disposition home or self-care (01) ==
LOC: RAD 08:40
PROVIDERS: PCP Nurse Practitioner Family; Visit Provider Specialist
DX: R51.9 Headache, unspecified (principal); Q21.12 Patent foramen ovale; I63.9 Cerebral infarction, unspecified; R93.0 Abnormal findings on diagnostic imaging of skull and head, not elsewhere classified; M27.40 Unspecified cyst of jaw
CPT/HCPCS: 70544; 70551

== ENCOUNTER → 2025-03-05 11:50 | Outpatient (BNVA) | payer OTHER, SELFPAY | PROVIDERS: Visit Provider Specialist | DX: G43.711 Chronic migraine without aura, intractable, with status migrainosus (principal); R41.3 Other amnesia; Z86.73 Personal history of transient ischemic attack (TIA), and cerebral infarction without residual deficits; Q21.12 Patent foramen ovale; B38.9 Coccidioidomycosis, unspecified; G47.33 Obstructive sleep apnea (adult) (pediatric) | CPT/HCPCS: 36415; 82542; 82607; 82746; 83520; 99215 ==

== ENCOUNTER 2025-03-13 11:50 | Outpatient (CLI) | payer OTHER, SELFPAY ==
--- NOTE | 2025-03-13 12:00 | CT_ITS ---
WS: [email or web address] CTA HEAD AND NECK TECHNIQUE: Contrast enhanced CTA of the head and neck with coronal and sagittal reformatted images and maximum intensity projection (MIP) images. NASCET criteria utilized. CLINICAL INFORMATION: G31.84 - Mild cognitive impairment of uncertain or unknow... COMPARISON: MRI head 02/14/2025 DLP: 1048.[address] scans at [facility] use at least one of these dose optimization techniques: automated exposure control; mA and/or kV adjustment per patient size (includes targeted exams where dose is matched to clinical indication); or iterative reconstruction. FINDINGS: No evidence of intracranial hemorrhage or mass effect. Ventricular system and basilar cisterns are patent. Normal miller-white differentiation. No extra-axial fluid collections. Paranasal sinuses and mastoid air cells are well aerated. Normal posterior nasopharynx. RIGHT: RIGHT common carotid artery is patent. No significant RIGHT ICA stenosis. LEFT: LEFT common carotid artery is patent. Mild atheromatous plaque LEFT carotid bulb. No significant LEFT ICA stenosis. LEFT ICA is patent to the skull base. LEFT dominant vertebral artery. Smaller but patent RIGHT vertebral artery partially ends in PICA. INTRACRANIAL CTA: Basilar artery is patent. Somewhat diminutive distal basilar artery with anterior dominant circulation. Persistent GUARD IMMIGRATION supply the GUARD IMMIGRATION territory bilaterally. Both ICAs are patent at the skull base. Mild cavernous carotid calcification. Normal vascularity to the ROLANDO and MCA territories bilaterally. No evidence of proximal flow-limiting stenosis. Small LEFT A1 segment. Moderate spondylitic changes cervical spine with mild central canal stenosis C3- C4 C4-C5 and C5-C6 due to disc osteophyte complexes. This can be further evaluated with cervical spine MRI. CT/CT angio headneck* [id number] IMPRESSION: 1. No significant ICA stenosis bilaterally. Mild carotid bulb atheromatous dis ease. 2. No flow-limiting intracranial stenosis. 3. LEFT dominant vertebral artery. Smaller but patent RIGHT vertebral artery. RIGHT vertebral artery partially ends in PICA. 4. Anterior dominant circulation with somewhat small distal basilar artery. 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 Recommend cervical spine MRI to evaluate cervical spine stenosis.
[2025-03-13] MEDS: iohexol 350 mg/mL 500 mL Btl (per mL) IV (12:26)
== END 2025-03-13 11:51 | disposition home or self-care (01) ==
LOC: RAD 11:50
PROVIDERS: PCP Nurse Practitioner Family; Visit Provider Specialist
DX: G31.84 Mild cognitive impairment of uncertain or unknown etiology (principal); Z86.73 Personal history of transient ischemic attack (TIA), and cerebral infarction without residual deficits; G47.33 Obstructive sleep apnea (adult) (pediatric)
CPT/HCPCS: 70496; 70498

== ENCOUNTER → 2025-03-20 10:31 | Outpatient (BNVA) | payer OTHER, SELFPAY | PROVIDERS: PCP Nurse Practitioner Family; Visit Provider Podiatrist Foot & Ankle Surgery | DX: M72.2 Plantar fascial fibromatosis (principal); G62.9 Polyneuropathy, unspecified; M21.70 Unequal limb length (acquired), unspecified site | CPT/HCPCS: 99214 ==

== ENCOUNTER → 2025-04-24 11:18 | Outpatient (BNVA) | payer OTHER, SELFPAY | PROVIDERS: PCP Nurse Practitioner Family; Visit Provider Podiatrist Foot & Ankle Surgery | DX: M72.2 Plantar fascial fibromatosis (principal); G62.9 Polyneuropathy, unspecified; M21.70 Unequal limb length (acquired), unspecified site | CPT/HCPCS: 99214 ==

== ENCOUNTER 2025-04-25 11:31 | Outpatient (CLI) | payer OTHER, SELFPAY ==
--- NOTE | 2025-04-25 11:45 | MR_ITS ---
WS: [email or web address] MRI LEFT ANKLE WITHOUT CONTRAST. COMPARISON: None Multiplanar, multisequence imaging is performed without contrast. There is a small amount of edema in the pre-Achilles fat pad. There is fluid surrounding the flexor digitorum longus tendon. Mild retrocalcaneal bursitis. There is a mild Lilliana deformity. Achilles tendon is intact. Normal plantar fascia. No evidence for acute fasciitis. No fascial tear. Peroneal tendons are normal size. No tendinopathy. Increased T2 signal in the central posterior tibialis tendon just distal to the medial malleolus consistent with the split tear centrally. No atrophy of the tendon. Fluid surrounding the flexor digitorum tendon posterior to the ankle. No marrow edema or fractures. There is a very small lesion in the cartilage over the lateral talar dome. No joint effusion. Anterior and posterior talofibular ligaments are intact. There is a small amount of increased T2 signal in the ATFL but no tear identified. No interosseous ligament tear. Normal deltoid ligament. Normal calcaneofibular ligament. MR/MR ankle LT wo con* [id number] IMPRESSION: 1. Very mild Lilliana deformity with mild retrocalcaneal bursitis. Small amount of edema in the pre-Achilles fat pad. 2. Split tear in the distal posterior tibialis tendon. Tear is just distal to the medial malleolus. 3. Normal plantar fascia. 4. Mild tenosynovitis flexor digitorum longus tendon sheath.
== END 2025-04-25 11:32 | disposition home or self-care (01) ==
LOC: RAD 11:32
PROVIDERS: PCP Nurse Practitioner Family; Visit Provider Podiatrist Foot & Ankle Surgery
DX: M95.8 Other specified acquired deformities of musculoskeletal system (principal); S96.812A Strain of other specified muscles and tendons at ankle and foot level, left foot, initial encounter; X58.XXXA Exposure to other specified factors, initial encounter
CPT/HCPCS: 73721

== ENCOUNTER 2025-05-07 14:31 | Outpatient (CLI) | payer OTHER, SELFPAY | END 2025-05-07 14:32 | disposition home or self-care (01) | LOC: SLEEP 14:32 | PROVIDERS: PCP Nurse Practitioner Family; Referring Provider Specialist; Visit Provider Specialist | DX: G47.33 Obstructive sleep apnea (adult) (pediatric) (principal); G31.84 Mild cognitive impairment of uncertain or unknown etiology; Z86.73 Personal history of transient ischemic attack (TIA), and cerebral infarction without residual deficits; G47.36 Sleep related hypoventilation in conditions classified elsewhere | CPT/HCPCS: G0399 ==

== ENCOUNTER → 2025-05-15 08:51 | Outpatient (BNVA) | payer OTHER, SELFPAY | PROVIDERS: PCP Nurse Practitioner Family; Visit Provider Podiatrist Foot & Ankle Surgery | DX: M76.822 Posterior tibial tendinitis, left leg (principal); M72.2 Plantar fascial fibromatosis; G62.9 Polyneuropathy, unspecified; M21.70 Unequal limb length (acquired), unspecified site; M66.879 Spontaneous rupture of other tendons, unspecified ankle and foot; M66.872 Spontaneous rupture of other tendons, left ankle and foot | CPT/HCPCS: 99214 ==

== ENCOUNTER 2025-05-20 11:50 | Outpatient (CLI) | payer OTHER, SELFPAY ==
[2025-05-20 12:33] LABS: Hematocrit 42.6 % (37-53); Hemoglobin 14.50 g/dL (11.27-16.99); Mean Corpuscular HGB Conc 34.0 g/dL (30-55); Mean Corpuscular Hemoglobin 31.7 pg (27-33); Mean Corpuscular Volume 93.0 fl (82-101); Nucleated Red Blood Cells % 0 %; Platelet Count 187 10^3/cmm (157-399); Red Blood Count 4.58 10^6/uL (3.85-5.65); White Blood Count 4.07 10^3/uL (3.29-11.43)
== END 2025-05-20 11:51 | disposition home or self-care (01) ==
LOC: LAB 11:54
PROVIDERS: PCP Nurse Practitioner Family; Visit Provider Student in an Organized Health Care Education/Training Program
DX: Z01.818 Encounter for other preprocedural examination (principal)
CPT/HCPCS: 36415; 85025

== ENCOUNTER → 2025-05-30 09:03 | Outpatient (BNVA) | payer OTHER, SELFPAY | PROVIDERS: PCP Nurse Practitioner Family; Visit Provider Specialist | DX: G43.711 Chronic migraine without aura, intractable, with status migrainosus (principal) | CPT/HCPCS: 64615; 99215; J0585; J9999 ==

== ENCOUNTER 2025-06-13 09:55 | Outpatient (RCR) | payer OTHER, SELFPAY | END 2025-06-14 23:59 | disposition home or self-care (01) | LOC: TPT 09:55 | PROVIDERS: Visit Provider Family Medicine Geriatric Medicine | DX: M76.822 Posterior tibial tendinitis, left leg (principal) | CPT/HCPCS: 97161 ==

== ENCOUNTER 2025-07-22 10:14 | Outpatient (CLI) | payer OTHER, SELFPAY ==
--- NOTE | 2025-07-22 10:16 | MR_ITS ---
WS: [email or web address] MRI THORACIC SPINE WITHOUT CONTRAST TECHNIQUE: Sagittal T1, T2 and STIR imaging. Axial T2 imaging. Noncontrast imaging obtained. CLINICAL INFORMATION: compression fracture COMPARISON: None. FINDINGS: Mild lumbar curve. No acute compression. Numerous shallow disc protrusions throughout the thoracic spine extending to the upper lumbar spine. Cord signal is normal. Mild central canal stenosis T9-T10 T10-T11 with central disc protrusions and facet arthropathy. Shallow disc protrusions at T2-3, T3-4, T4-5, T6-7 T7-8, T8-9, T9-10, T10-11, T11-12, and T12-L1. Mild LEFT T7-8, bilateral T8-9, bilateral T9-10, moderate RIGHT greater than LEFT T10-11 foraminal narrowing. Moderate facet arthropathy worse at T10-11. Small esophageal hiatal hernia MR/MR thoracic spin wo con* [id number] IMPRESSION: 1. Mild thoracic curve. No acute compression fractures. 2. Shallow disc protrusions throughout the thoracic spine with mild central ca nal stenosis T9-T10 and T10-11. 3. Foraminal narrowing worse at T10-11 with moderate bilateral foraminal narro wing RIGHT greater than LEFT. 4. Moderate facet arthropathy lower thoracic spine worse at T10-11.
--- NOTE | 2025-07-22 10:17 | MR_ITS ---
WS: [email or web address] MRI LUMBAR SPINE NONCONTRAST TECHNIQUE: Sagittal T1, T2 and STIR imaging. Axial T1 and T2 imaging. CLINICAL INFORMATION: compression fracture COMPARISON: 2023 FINDINGS: Mild lumbar curve. No acute compression. Slight anterolisthesis L5 on S1. L1-L2: Mild annular bulging. Mild facet arthropathy. Spinal canal and foramen are patent. L2-L3: Mild annular bulging. Tiny annular fissure. Slight narrowing subarticular recess. Mild LEFT foraminal narrowing. L3-L4: Mild annular bulging. Mild facet arthropathy. Mild central canal stenosis. Narrowing of the subarticular recess bilaterally. Mild LEFT foraminal narrowing. L4-L5: Mild annular bulging. Slight effacement of the ventral thecal sac. Moderate RIGHT greater than LEFT foraminal narrowing. Mild facet arthropathy. L5-S1: Grade 1 anterolisthesis. Shallow central protrusion. Impingement of the traversing S1 nerve roots RIGHT greater than LEFT. Moderate facet arthropathy. Mild bilateral foraminal narrowing. Visualized pelvic bony structures: Normal. Paravertebral soft tissues: Normal. Shallow protrusions lower thoracic spine T11-T12 and T12-L1 MR/MR lumbar spine wo con* [id number] IMPRESSION: 1. Mild lumbar curve. No acute compression. Slight anterolisthesis L5 on S1. 2. Mild central canal stenosis L3-4, L4-5 and L5-S1 similar to previous. 3. Central disc bulge L5-S1 impinges the traversing RIGHT greater than LEFT S1 nerve roots. 4. Narrowing of the subarticular recess bilaterally L3-4 and L4-5. This is sim ilar to previous. 5. Small LEFT foraminal protrusion L3-4 with mild LEFT foraminal narrowing. 6. Moderate RIGHT L4-5 foraminal narrowing similar to previous. 7. Mild bilateral L5-S1 bony foraminal narrowing.
== END 2025-07-22 10:15 | disposition home or self-care (01) ==
LOC: RAD 10:14
PROVIDERS: Visit Provider Family Medicine Geriatric Medicine
DX: M54.9 Dorsalgia, unspecified (principal); M43.8X6 Other specified deforming dorsopathies, lumbar region; M48.07 Spinal stenosis, lumbosacral region; M51.26 Other intervertebral disc displacement, lumbar region; M48.061 Spinal stenosis, lumbar region without neurogenic claudication; M43.8X4 Other specified deforming dorsopathies, thoracic region; M51.24 Other intervertebral disc displacement, thoracic region; M48.04 Spinal stenosis, thoracic region; M47.894 Other spondylosis, thoracic region
CPT/HCPCS: 72146; 72148

== ENCOUNTER 2025-07-23 12:16 | Outpatient (RCR) | payer OTHER, SELFPAY | END 2025-08-14 23:59 | disposition home or self-care (01) | LOC: TPT 12:16 | PROVIDERS: Visit Provider Family Medicine Geriatric Medicine | DX: M76.822 Posterior tibial tendinitis, left leg (principal) | CPT/HCPCS: 97110; 97140; 97530; 99213 ==